=== PATIENT | male | born 1945 | race Caucasian/White ===

== ENCOUNTER 2017-01-04 21:05 | Emergency (ER) | payer MEDICARE ==
[~2017-01-04] VITALS: Ht 182.9 cm; Wt 86.2 kg
[2017-01-04 21:52] LABS: Basophils # (auto) 0 uL; Basophils % (auto) 0.3 % (0.0-2.0); CONDITION Y; Eosinophils # (auto) 0.1 uL; Eosinophils % (auto) 1.7 % (0.0-7.0); Hemoglobin 14.5 g/dL (13.5-17.5); Lymphocytes % (auto) 13.2 % (10.0-50.0); Mean Corpuscular Hemoglobin 31.3 pg (28.0-32.0); Mean Corpuscular Hgb Conc. 34.5 g/dL (32.0-36.0); Mean Corpuscular Volume 90.8 fL (80.0-100.0); Mean Platelet Volume 8.8 fL (6.9-10.8); Monocytes # (auto) 0.7 uL; Monocytes % (auto) 9.4 % (0.0-12.0); Neutrophils # (auto) 5.5 uL; Neutrophils % (auto) 75.4 % (37.0-80.0); Platelet Count (auto) 222 10^3/uL (140-450); White Blood Cell 7.3 10^3/uL (4.4-10.8)
[2017-01-04 22:14] LABS: Albumin 3.4 g/dL (3.4-5.0); Anion Gap 6 (5-15); Aspartate Aminotransferase 17 U/L (15-37); BUN/Creatinine Ratio 10.2; Blood Urea Nitrogen 11 mg/dL (7-18); Calcium 8.4 mg/dL (8.5-10.1); Carbon Dioxide 28 mmol/L (21-32); Chloride 110 mmol/L (98-107); GFR African American 87 mL/min; GFR Non-African American 72 mL/min; Glucose 85 mg/dL (74-106); Magnesium 2.1 mg/dL (1.6-2.6); Sodium 144 mmol/L (136-145)
[2017-01-04 22:19] LABS: Alkaline Phosphatase 116 U/L (45-117); Bilirubin, Total 0.6 mg/dL (0.2-1.0)
[2017-01-05 01:02] VITALS: BP 152/82
== END 2017-01-05 01:44 | disposition left against medical advice (07) ==
LOC: EDBD 21:05 → ER 21:11
DX: I10 Essential (primary) hypertension (principal); F41.9 Anxiety disorder, unspecified; Z88.6 Allergy status to analgesic agent; Z53.29 Procedure and treatment not carried out because of patient's decision for other reasons
CPT/HCPCS: 36415; 71010; 80053; 83735; 84484; 85025; 85379; 93005

== ENCOUNTER 2019-08-22 12:52 | Inpatient (IN) | payer MEDICARE, OTHER ==
[~2019-08-22] VITALS: Ht 185.4 cm; Wt 70.3 kg
[2019-08-22] MEDS ORDERED: ASPirin 81 mg TAB PO ONE (13:30)
[2019-08-22 13:44] LABS: Basophils # (auto) 0 10 ^3/uL (0-0.2); Basophils % (auto) 0.7 % (0.0-2.0); Eosinophils # (auto) 0.1 10 ^3/uL (0-0.8); Eosinophils % (auto) 1.7 % (0.0-7.0); Hematocrit 42.3 % (41.0-53.0); Hemoglobin 14.2 g/dL (13.5-17.5); Lymphocytes # (auto) 0.8 10 ^3/uL (0.4-5.4); Lymphocytes % (auto) 15.1 % (10.0-50.0); Mean Corpuscular Hgb Conc. 33.5 g/dL (32.0-36.0); Mean Corpuscular Volume 92.4 fL (80.0-100.0); Monocytes # (auto) 0.4 10 ^3/uL (0-1.3); Monocytes % (auto) 8.9 % (0.0-12.0); Neutrophils # (auto) 3.7 10 ^3/uL (1.6-8.6); Neutrophils % (auto) 73.6 % (37.0-80.0); Nucleated Red Blood Cells % 0.2 %; Platelet Count (auto) 173 10^3/uL (140-450); Red Blood Cells 4.58 10^6/uL (4.5-5.90); Red Cell Distribution Width 13.7 % (11.8-14.3)
[2019-08-22 14:00] LABS: Albumin 3.5 g/dL (3.4-5.0); Anion Gap 5 (5-15); Blood Urea Nitrogen 13 mg/dL (7-18); Calcium 8.8 mg/dL (8.5-10.1); Carbon Dioxide 27 mmol/L (21-32); Chloride 108 mmol/L (98-107); Glucose 82 mg/dL (74-106); Magnesium 2.2 mg/dL (1.6-2.6); Potassium 3.8 mmol/L (3.5-5.1); Sodium 140 mmol/L (136-145)
[2019-08-22] MEDS ORDERED: LORazepam 2MG/ML-1ML VIAL ONE (14:00)
[2019-08-22 14:01] LABS: INR 1.04 (0.9-1.15); Partial Thromboplastin Time 26.8 sec (23.64-32.05)
[2019-08-22 14:05] LABS: Alanine Aminotransferase 16 U/L (16-61); Alkaline Phosphatase 92 U/L (45-117); Aspartate Aminotransferase 17 U/L (15-37); BUN/Creatinine Ratio 13.1; Bilirubin, Total 0.9 mg/dL (0.2-1.0); GFR African American 95 mL/min; GFR Non-African American 79 mL/min; Total Protein 7.1 g/dL (6.4-8.2)
[2019-08-22] MEDS ORDERED: LORazepam 2MG/ML-1ML VIAL IV ONE ×3 (14:15→17:00)
[2019-08-22] MEDS ORDERED: diphenhdrAMINE HCL 50 MG/1 ML VL IV ONE (15:00)
[2019-08-22] MEDS ORDERED: ACETAMINOPHEN 500 MG TAB PO PRN (16:00)
[2019-08-22] MEDS ORDERED: traMADol HCL 50 MG TAB PO PRN (16:00)
[2019-08-22] MEDS ORDERED: NITROGLYCERIN 0.4 MG SL TAB SL PRN (16:00)
[2019-08-22] MEDS ORDERED: MORPHINE SULF INJ 2 MG/ML SYRINGE 1ML IV PRN (16:00)
[2019-08-22] MEDS ORDERED: LACTULOSE 20Gm/30ML SOLN PO PRN (16:00)
[2019-08-22] MEDS ORDERED: ONDANSETRON HCL 4 MG/2 ML VIAL IV PRN (16:00)
[2019-08-22] MEDS: ENOXAPARIN SOD 40 MG/0.4 ML SYRINGE SC SCH (16:02)
[2019-08-22] MEDS ORDERED: HALOPERIDOL LACTATE 5 MG/ML INJ VIAL IV ONE (16:15)
[2019-08-22] MEDS: SODIUM CHLORIDE 0.9% 1,000 ML IV SCH (16:26)
[2019-08-22] MEDS ORDERED: risperiDONE 1 MG TAB PO ONE (17:00)
[2019-08-22 17:30] VITALS: BP 189/90
[2019-08-22] MEDS ORDERED: LISI2.5T47 PO (19:43)
[2019-08-22] MEDS ORDERED: LOP2C PO (19:43)
[2019-08-22] MEDS ORDERED: DONE5TAB11 PO (19:43)
[2019-08-22] MEDS ORDERED: ASPI-404 PO (19:43)
[2019-08-22 20:00] VITALS: BP 152/98
[2019-08-22] MEDS ORDERED: hydrALAZINE HCL 20 MG/ML VL IV PRN (20:00)
[2019-08-22] MEDS: METOPROLOL TARTRATE 25 MG TAB PO SCH (22:47)
[2019-08-22] MEDS: ATORVASTATIN 20 MG TAB PO SCH (22:48)
[2019-08-22] MEDS: DONEPEZIL HYDROCHLORIDE 5 MG TAB PO SCH (22:48)
[2019-08-23] MEDS: SODIUM CHLORIDE 0.9% 1,000 ML IV SCH ×2 (05:57→15:59)
[2019-08-23] MEDS: LORazepam 2MG/ML-1ML VIAL IV PRN ×3 (08:40→22:28)
[2019-08-23 09:00] VITALS: BP 138/79
[2019-08-23] MEDS: ENOXAPARIN SOD 40 MG/0.4 ML SYRINGE SC SCH (11:55)
[2019-08-23] MEDS: NITROGLYCERIN 0.2MG/HR TOPICAL PATCH TD SCH (11:56)
[2019-08-23] MEDS: risperiDONE 1 MG TAB PO SCH (11:56)
[2019-08-23] MEDS: ASPirin 81 mg TAB PO SCH (11:56)
[2019-08-23] MEDS: METOPROLOL TARTRATE 25 MG TAB PO SCH ×2 (11:57→22:43)
[2019-08-23 13:00] VITALS: BP 118/66
[2019-08-23 17:00] VITALS: BP 135/70
[2019-08-23 22:00] VITALS: BP 143/76
[2019-08-23] MEDS: ATORVASTATIN 20 MG TAB PO SCH (22:42)
[2019-08-23] MEDS: DONEPEZIL HYDROCHLORIDE 5 MG TAB PO SCH (22:42)
[2019-08-24 05:00] VITALS: BP 150/77
[2019-08-24 08:30] VITALS: BP 128/74
[2019-08-24] MEDS: ENOXAPARIN SOD 40 MG/0.4 ML SYRINGE SC SCH (10:07)
[2019-08-24] MEDS: NITROGLYCERIN 0.2MG/HR TOPICAL PATCH TD SCH (10:09)
[2019-08-24] MEDS: ASPirin 81 mg TAB PO SCH (11:57)
[2019-08-24] MEDS: risperiDONE 1 MG TAB PO SCH (11:57)
[2019-08-24] MEDS: METOPROLOL TARTRATE 25 MG TAB PO SCH ×2 (11:57→21:53)
[2019-08-24 14:00] VITALS: BP 145/81
[2019-08-24] MEDS: LORazepam 2MG/ML-1ML VIAL IV PRN (15:33)
[2019-08-24 17:00] VITALS: BP 151/90
[2019-08-24 21:49] VITALS: BP 150/90
[2019-08-24] MEDS: ATORVASTATIN 20 MG TAB PO SCH (21:53)
[2019-08-24] MEDS: DONEPEZIL HYDROCHLORIDE 5 MG TAB PO SCH (21:53)
[2019-08-25] MEDS: LORazepam 2MG/ML-1ML VIAL IV PRN ×2 (02:51→09:46)
[2019-08-25 05:00] VITALS: BP 128/67
[2019-08-25] MEDS: risperiDONE 1 MG TAB PO SCH (09:44)
[2019-08-25] MEDS: ASPirin 81 mg TAB PO SCH (09:45)
[2019-08-25] MEDS: METOPROLOL TARTRATE 25 MG TAB PO SCH (09:45)
[2019-08-25] MEDS: ENOXAPARIN SOD 40 MG/0.4 ML SYRINGE SC SCH (09:45)
[2019-08-25] MEDS: NITROGLYCERIN 0.2MG/HR TOPICAL PATCH TD SCH (09:46)
[2019-08-25 13:00] VITALS: BP 132/74
[2019-08-28] MEDS ORDERED: LISI10TA6 PO (11:09)
== END 2019-08-25 17:30 | disposition home or self-care (01) | DRG 303 ==
LOC: ER 12:52 → EDBD 12:52 → TELE 12:53 → TELE-WESTW 17:30
PROVIDERS: ADMIT Internal Medicine; ATTEND Internal Medicine Nephrology
DX: I25.10 Atherosclerotic heart disease of native coronary artery without angina pectoris (principal); F02.81 Dementia in other diseases classified elsewhere, unspecified severity, with behavioral disturbance; K50.90 Crohn's disease, unspecified, without complications; G30.1 Alzheimer's disease with late onset; I10 Essential (primary) hypertension; Z82.49 Family history of ischemic heart disease and other diseases of the circulatory system; Z87.891 Personal history of nicotine dependence; Z79.899 Other long term (current) drug therapy
CPT/HCPCS: 36415; 71045; 80053; 82550; 83735; 83880; 84443; 84484; 85025; 85379; 85610; 85652; 85730; 87045; 87427; 87493; 93005; 93306; 96361; 96374; 96375; G0378

== ENCOUNTER 2019-08-25 21:59 | Inpatient (IN) | payer OTHER ==
[~2019-08-25] VITALS: Ht 182.9 cm; Wt 76.0 kg
[~2019-08-25 21:59] MED LIST: ASPI-543 PO; DONE5TAB11 PO; LISI2.5T47 PO; LOP2C PO
[2019-08-25 22:49] LABS: Basophils # (auto) 0 10 ^3/uL (0-0.2); Basophils % (auto) 0.3 % (0.0-2.0); Eosinophils # (auto) 0 10 ^3/uL (0-0.8); Eosinophils % (auto) 0.1 % (0.0-7.0); Hematocrit 45.1 % (41.0-53.0); Lymphocytes # (auto) 0.4 10 ^3/uL (0.4-5.4); Mean Corpuscular Hemoglobin 30.4 pg (28.0-32.0); Mean Corpuscular Hgb Conc. 33.3 g/dL (32.0-36.0); Mean Corpuscular Volume 91.4 fL (80.0-100.0); Monocytes % (auto) 10.4 % (0.0-12.0); Neutrophils % (auto) 85.2 % (37.0-80.0); Nucleated Red Blood Cells % 0.1 %; Platelet Count (auto) 168 10^3/uL (140-450); Red Blood Cells 4.94 10^6/uL (4.5-5.90); Red Cell Distribution Width 13.5 % (11.8-14.3); White Blood Cell 9.4 10^3/uL (4.4-10.8)
[2019-08-25 22:58] LABS: Albumin 3.5 g/dL (3.4-5.0); Anion Gap 7 (5-15); Blood Urea Nitrogen 14 mg/dL (7-18); Calcium 8.9 mg/dL (8.5-10.1); Carbon Dioxide 27 mmol/L (21-32); Chloride 106 mmol/L (98-107); Glucose 129 mg/dL (74-106); Potassium 3.5 mmol/L (3.5-5.1); Sodium 140 mmol/L (136-145)
[2019-08-25] MEDS ORDERED: SODIUM CHLORIDE 0.9% 1,000 ML IV ONE (23:00)
[2019-08-25 23:05] LABS: Alanine Aminotransferase 23 U/L (16-61); Alkaline Phosphatase 106 U/L (45-117); Aspartate Aminotransferase 33 U/L (15-37); BUN/Creatinine Ratio 12.3; Bilirubin, Total 1.9 mg/dL (0.2-1.0); GFR African American 81 mL/min; GFR Non-African American 67 mL/min; Total Protein 7.3 g/dL (6.4-8.2)
[2019-08-25] MEDS ORDERED: diphenhdrAMINE HCL 50 MG/1 ML VL IV ONE (23:15)
[2019-08-26 01:54] LABS: Urine Bacteria FEW /hpf (None Seen); Urine Blood 1+ /uL (Negative); Urine Hyaline Cast MANY /lpf (0 - 2); Urine Mucus FEW (None Seen); Urine Specific Gravity 1.023 (1.001-1.035); Urine WBC 6 /hpf (0 - 3)
[2019-08-26] MEDS ORDERED: cefTRIAXone 1GM/50ML D5W 50 ML IV ONE (03:15)
[2019-08-26] MEDS ORDERED: DOCUSATE SOD 100 MG CAP PO PRN (05:00)
[2019-08-26] MEDS ORDERED: ONDANSETRON HCL 4 MG/2 ML VIAL IV PRN (05:00)
[2019-08-26] MEDS ORDERED: ACETAMINOPHEN 325 MG TAB PO PRN (05:00)
[2019-08-26] MEDS: ASPirin 81 mg TAB PO SCH (10:06)
[2019-08-26] MEDS: FAMOTIDINE 20 MG TAB PO SCH ×2 (10:06→22:59)
[2019-08-26] MEDS: LISINOPRIL 5 MG TAB PO SCH (10:07)
[2019-08-26] MEDS ORDERED: DOXYCYCLINE 100MG/250ML 250 ML IV ONE (11:15)
[2019-08-26] MEDS: SODIUM CHLORIDE 0.9% 1,000 ML IV SCH (12:21)
--- NOTE | 2019-08-26 14:51 | NUR ---
MS admit from ER BOYDJONEL admitted to tele/MS after SBAR received. Patient oriented to PRASANNA MORALES, RN primary RN, unit, room 219B, bed, and unit policies regarding patient care and visiting hours. Patient weighed by bedscale and encouraged to call if they need something. All questions and concerns addressed, patient verbalized understanding. Bed in low and locked position, rails up x2, no-slip socks on, sitter at bedside.
[2019-08-26 15:00] VITALS: BP 140/70
--- NOTE | 2019-08-26 15:40 | NUR ---
SPOKE TO PATIENTS JANNETTE ON THE PHONE, VERIFIED RELATIONSHIP TO PATIENT, PASSWORD CREATED FOR CHART. UPDATED ON PLN OF CARE, DMISSION QUESTIONS ANSWERED.
[2019-08-26 17:00] VITALS: BP 129/70
[2019-08-26 17:03] VITALS: BP 140/70
--- NOTE | 2019-08-26 18:11 | NUR ---
MRSA SWAB COLLECTED
--- NOTE | 2019-08-26 19:05 | NUR ---
OPENING SHIFT NOTE: ASSUMED CARE OF PATIENT. PATIENT IS AWAKE AND ALERT TO SELF ONLY. NO S/S OF SOB OR DISTRESS NOTED. BED IS LOW, LOCKED, TWO SIDE RAILS RAISED, CALL DA SILVA WITHIN REACH, BED ALARM ON, AND SITTER AT THE BEDSIDE. ORELLANA HUNG BELOW THE BLADDER AND DRAINING TO GRAVITY. INSTRUCTED ON POC AND ENCOURAGED PT TO CALL FOR ASSISTANCE, PATIENT VERBALIZED UNDERSTANDING. WILL CONTINUE TO MONITOR Q1 HR AND PRN.
[2019-08-26 20:00] VITALS: BP 124/81
[2019-08-26 21:22] VITALS: BP 124/81
[2019-08-26] MEDS: DOXYCYCLINE 100MG/250ML 250 ML IV SCH (22:00)
[2019-08-26] MEDS: DONEPEZIL HYDROCHLORIDE 5 MG TAB PO SCH (22:58)
--- NOTE | 2019-08-26 23:30 | NUR ---
IV DISCONTINUED/INSERTED: RIGHT FOREARM 20 GAUGE PULLED OUT BY PATIENT, CATHETER TIP INTACT, PRESSURE DRESSING APPLIED. NEW 22 GAUGE IV INSERTED IN RIGHT FOREARM, PATIENT TOLERATED WELL. WILL CONTINUE TO MONITOR
[2019-08-27] MEDS: SODIUM CHLORIDE 0.9% 1,000 ML IV SCH ×2 (01:50→15:10)
[2019-08-27] MEDS: cefTRIAXone 1GM/50ML D5W 50 ML IV SCH (03:06)
[2019-08-27 05:17] VITALS: BP 119/72
[2019-08-27 06:54] LABS: Basophils # (auto) 0 10 ^3/uL (0-0.2); Basophils % (auto) 0.5 % (0.0-2.0); Eosinophils # (auto) 0.2 10 ^3/uL (0-0.8); Eosinophils % (auto) 2.1 % (0.0-7.0); Hematocrit 40.7 % (41.0-53.0); Hemoglobin 13.7 g/dL (13.5-17.5); Lymphocytes # (auto) 0.6 10 ^3/uL (0.4-5.4); Mean Corpuscular Hemoglobin 30.4 pg (28.0-32.0); Mean Corpuscular Hgb Conc. 33.5 g/dL (32.0-36.0); Mean Corpuscular Volume 90.7 fL (80.0-100.0); Monocytes # (auto) 1.1 10 ^3/uL (0-1.3); Monocytes % (auto) 14.1 % (0.0-12.0); Neutrophils # (auto) 5.8 10 ^3/uL (1.6-8.6); Neutrophils % (auto) 75.3 % (37.0-80.0); Nucleated Red Blood Cells % 0.2 %; Platelet Count (auto) 168 10^3/uL (140-450); Red Blood Cells 4.49 10^6/uL (4.5-5.90); Red Cell Distribution Width 13.5 % (11.8-14.3); White Blood Cell 7.7 10^3/uL (4.4-10.8)
[2019-08-27 07:10] LABS: BUN/Creatinine Ratio 17.1; Calcium 8.2 mg/dL (8.5-10.1)
--- NOTE | 2019-08-27 07:25 | NUR ---
OPENING SHIFT NOTE ASSUMED CARE OF PATIENT FROM LABEL MAKER RN SAIRA. PATIENT IS AWAKE, ALERT, AND ORIENTED X1 (PERSON). REORIENTED PATIENT TO TIME, PLACE, AND SITUATION. PATIENT HAS NO S/S OF DISTRESS/SOB OR PAIN. INSTRUCTED PATIENT ON POC, PATIENT VERBALIZED UNDERSTANDING. BED IS IN LOWEST POSITION WITH SIDE RAILS RAISED X2, BED WHEELS LOCKED, ORELLANA IS HANGING BELOW BLADDER AND IS DRAINING DARK MENG URINE, SITTER AT BEDSIDE, AND CALL LIGHT IS WITHIN REACH. WILL CONTINUE TO MONITOR.
[2019-08-27 07:37] LABS: Potassium 2.8 mmol/L (3.5-5.1)
--- NOTE | 2019-08-27 07:40 | NUR ---
SPOKE WITH HOSPITALIST INFORMED MD GODWIN AND INFORMED HIM OF POTASSIUM OF 2.8. MD ORDERED 40 MEQ POTASSIUM IV. WILL FOLLOW THROUGH WITH ORDERS.
[2019-08-27 07:59] VITALS: BP 155/97
[2019-08-27 09:00] VITALS: BP 155/97
[2019-08-27] MEDS: ASPirin 81 mg TAB PO SCH (09:07)
[2019-08-27] MEDS: POTASSIUM CHL 20MEQ/100ML 100 ML IV SCH ×2 (09:07→11:45)
[2019-08-27] MEDS: LISINOPRIL 5 MG TAB PO SCH (09:08)
[2019-08-27] MEDS: FAMOTIDINE 20 MG TAB PO SCH ×2 (09:20→21:41)
[2019-08-27] MEDS: DOXYCYCLINE 100MG/250ML 250 ML IV SCH ×2 (09:22→21:41)
[2019-08-27] MEDS ORDERED: POTASSIUM CHL 20 Meq TABLET PO ONE (10:15)
--- NOTE | 2019-08-27 11:08 | NUR ---
WOUND CARE NOTE: Wound care in to see patient per wound care request regarding low Meir score. Patient is 74 years old male with admitting diagnosis of Acute Encephalopathy. Patient with history of Alzheimer, dementia, Htn. Patient is resting in bed in Rm. 219B. Patient is awake and able to follow simple direction. He's able to turn and reposition self upon given direction. His Meir score is 15. Skin assessment done with the help of nurse tourist information assistant at bedside. No wound noted other than inner buttock scar, intact ecchymosis to bilateral dorsal hand and Rt forearm; area is clean and dry, left open to air. Patient is receiving BID/PRN cleaning and application of Barrier cream to sacral buttocks as preventative. Patient tolerated well and repositioned for comfort facing his Lt side. Nurse tourist information assistant t bedside. RECOMMENDATION: Nursing to continue with BID/PRN cleaning and application of Barrier cream to sacral, buttocks as preventative, remind for frequent turning and repositioning as condition permits, redistribute pressure points with pillows,continue monitoring by wound care while patient is hospitalized. Addendum: 08/27/19 at 1320 by Sarita Padilla RN Amended: Links added.
--- NOTE | 2019-08-27 12:06 | NUR ---
assessment re: ss consult need more help Patient is a 74 year old male who is confused. Per patients Antonr prior to admission patient lived home with her and functioned with her assistance. Per Renetta patient could bathe, dress, and feed himself. Patient ambulated on his own with no DME. Per Renetta she would be with him at all times to watch over him due to his dementia. Per Renetta patients PCP is Dr Black at [facility]. Renetta informed me patient has no needs at home. I informed Renetta about the ss consult for needing additional resources on discharge. Renetta informed me home health nurse to check patients vitals would be beneficial. I will notify MD. Jackson verbalized understanding and agreed to discharge plan home. Addendum: 08/27/19 at 1214 by Maddi SANCHEZ Amended: Links added.
[2019-08-27 13:00] VITALS: BP 157/89
[2019-08-27] MEDS ORDERED: POTASSIUM EFFERVESENT TAB 25 MEQ PO ONE (14:15)
--- NOTE | 2019-08-27 14:25 | NUR ---
Nutrition Consult/assessment Notes please see attached link for complete assessment. [employer] needs BW 74 [id number] kcals (25-30 kcal/kgBW), Est Protein needs: 74-88/day (1.0-1.2 gm/kg BW). Will continue to monitor and reassess prn. Addendum: 08/27/19 at [address] Amended: Links added.
[2019-08-27 17:00] VITALS: BP 133/72
[2019-08-27] MEDS ORDERED: ENOXAPARIN SOD 40 MG/0.4 ML SYRINGE SC ONE (17:45)
--- NOTE | 2019-08-27 19:20 | NUR ---
Received report from the Day Shift WOO Kelly. Pt. in bed resting.
--- NOTE | 2019-08-27 19:22 | NUR ---
CLOSING SHIFT NOTE ENDORSED CARE TO RN DIABETES WOO LINARES. PATIENT HAS NO S/S OF DISTRESS/SOB OR PAIN.
--- NOTE | 2019-08-27 20:00 | NUR ---
Assessment done and completed. Provided bedside nsg. care and assisted with ADL'S and needs @ the bedside. Trupti Leonard @ the bedside helped WOO Quiroz providing pt. care.
[2019-08-27] MEDS: DONEPEZIL HYDROCHLORIDE 5 MG TAB PO SCH (21:41)
--- NOTE | 2019-08-27 21:41 | NUR ---
Meds. as scheduled given/administered to the pt. Pt. is confused and unable to comprehend health teachings. Trupti @ the bedside.
[2019-08-27 22:00] VITALS: BP 148/80
--- NOTE | 2019-08-27 22:00 | NUR ---
Pt. is trying to get oob and able to sit @ the side of the bed. Pt. is trying to pull his F/C with his hands. Pt. provided health teaching about hurting himself if he attempts to pull-out the F/C. Pt. understands a little or partial understanding. Pt. assisted back to the bed with his hands away from the F/C. Keep pt.safe and financial service representative bed.
[2019-08-28] MEDS: TEMAZEPAM 15 MG CAP PO PRN ×2 (00:25→21:34)
--- NOTE | 2019-08-28 00:25 | NUR ---
Pt. given Restoril-Temazepam 15 mg. po @ this time to help pt. go to sleep and prevent from getting oob and to prevent from pullingout his F/C. Pt. scooted up and repositioned comfortably in bed. Siderails up x -3, bed locked in low position and with the sitter @ the bedside.
--- NOTE | 2019-08-28 02:00 | NUR ---
Pt. is sleeping and calm @ this time. Maintained a safe and a quiet environment. Sitter @ the bedside.
[2019-08-28] MEDS: cefTRIAXone 1GM/50ML D5W 50 ML IV SCH (03:36)
--- NOTE | 2019-08-28 03:36 | NUR ---
Rocephin-Ceftriaxone IV antibiotic given @ this time.
--- NOTE | 2019-08-28 04:00 | NUR ---
Pt. sleeping, calm and quiet.
[2019-08-28 05:00] VITALS: BP 141/81
[2019-08-28 06:57] LABS: Calcium 8.5 mg/dL (8.5-10.1)
[2019-08-28 07:00] LABS: BUN/Creatinine Ratio 17.3
--- NOTE | 2019-08-28 07:40 | NUR ---
Opening shift note Assumed care of patient from NOC WOO Quiroz. Patient is AOx2-3, laying supine in bed with bilateral mittens in place. Assessed hands and no signs of injury noted under mittens. No signs and symptoms of distress, sob or pain noted. Bed is in lowest locked position, side rails up x4, call light is within reach and safety attended Cydney is at bedside. Updated patient on plan of care, patient unable to state understanding, reinforcement is needed. I will continue to monitor Q1hr and PRN.
--- NOTE | 2019-08-28 07:40 | NUR ---
Critical Lab Received call for potassium of 2.7, I will notify training personnel supervisor physician.
[2019-08-28 07:45] LABS: Potassium 2.7 mmol/L (3.5-5.1)
--- NOTE | 2019-08-28 08:19 | NUR ---
Paged cassandra consultant awaiting call back
[2019-08-28] MEDS: LISINOPRIL 5 MG TAB PO SCH (10:00)
--- NOTE | 2019-08-28 10:11 | NUR ---
Called physician updated Dr. Dos Santos about critical lab result. New orders received. I will follow through with orders.
[2019-08-28] MEDS: POTASSIUM CHL 10 Meq TABLET PO ONE ×2 (10:15→12:26)
[2019-08-28] MEDS ORDERED: LISI-648 PO (11:09)
[2019-08-28] MEDS: ENOXAPARIN SOD 40 MG/0.4 ML SYRINGE SC SCH (12:24)
[2019-08-28] MEDS: FAMOTIDINE 20 MG TAB PO SCH ×2 (12:25→12:41)
[2019-08-28] MEDS: ASPirin 81 mg TAB PO SCH ×2 (12:25→12:41)
[2019-08-28] MEDS: DOXYCYCLINE 100MG/250ML 250 ML IV SCH ×2 (12:28→21:51)
--- NOTE | 2019-08-28 12:45 | NUR ---
Patient refusing medications Patient will not swallow pills when i provided him with the medications, patient saying he doesn't want to swallow them. Educated patient on risks of not taking the medication. Patient unable to verbalize understanding, patient is A0x2.
--- NOTE | 2019-08-28 13:20 | NUR ---
Physician rounding Dr. Dos Santos at bedside. Updated him on patient status. New orders received, I will follow through with MD orders.
[2019-08-28] MEDS ORDERED: cloNIDine HCL 0.1 MG TAB PO PRN (13:30)
[2019-08-28 14:21] LABS: BUN/Creatinine Ratio 10.2; Calcium 8.7 mg/dL (8.5-10.1); Potassium 3.3 mmol/L (3.5-5.1)
[2019-08-28] MEDS: POTASSIUM CHL 20MEQ/100ML 100 ML IV SCH ×2 (15:11→18:58)
[2019-08-28 17:00] VITALS: BP 149/68
--- NOTE | 2019-08-28 19:15 | NUR ---
End of shift note Care of patient endorsed to WOO Jurado. No s/s of distress noted at this time.
[2019-08-28 20:00] VITALS: BP 145/68
--- NOTE | 2019-08-28 20:10 | NUR ---
SITTER AT BEDSIDE;PT CONFUSED BUT NOT AGITATED;TURNS SELF WELL.WILL CONTINUE TO MONITOR.
[2019-08-28 21:00] VITALS: BP 146/82
[2019-08-28] MEDS: DONEPEZIL HYDROCHLORIDE 5 MG TAB PO SCH (21:51)
[2019-08-29] MEDS: cefTRIAXone 1GM/50ML D5W 50 ML IV SCH (03:37)
[2019-08-29 05:00] VITALS: BP 149/72
--- NOTE | 2019-08-29 07:45 | NUR ---
Opening shift note Assumed care of patient from NOC RN Rhiannon. Patient is AOx1-2, no s/s of distress noted at this time. Bed is in lowest locked position, side rails up x3, and safety tech Sofi is at bedside. Updated patient on plan of care and patient wasn't able to verbalize understanding. Reinforcement is needed, I will continue to monitor Q1hr and PRN.
--- NOTE | 2019-08-29 09:20 | NUR ---
Physician rounding Dr. Dos Santos at bedside. Updated him on patient status. No new orders received.
[2019-08-29] MEDS ORDERED: POTASSIUM CHL 20 Meq TABLET PO ONE (09:30)
[2019-08-29] MEDS: DOXYCYCLINE 100MG/250ML 250 ML IV SCH ×3 (10:00→22:00)
[2019-08-29] MEDS: FAMOTIDINE 20 MG TAB PO SCH ×2 (10:54→21:42)
[2019-08-29] MEDS: LISINOPRIL 5 MG TAB PO SCH (10:55)
[2019-08-29] MEDS: ASPirin 81 mg TAB PO SCH (10:55)
[2019-08-29] MEDS: ENOXAPARIN SOD 40 MG/0.4 ML SYRINGE SC SCH (10:56)
[2019-08-29 11:35] VITALS: BP 148/77
--- NOTE | 2019-08-29 12:07 | NUR ---
IV insertion IV access obtained, via clean sterile technique by inserting 20 gauge catheter at right forearm after 2 attempts. IV secured properly. No trauma to site. Patient tolerated well.
[2019-08-29 13:11] VITALS: BP 128/63
--- NOTE | 2019-08-29 14:00 | NUR ---
IV removal Patient removed IV, catheter fully intact. Pressure dressing applied to site. No signs of distress noted to site.
[2019-08-29 14:16] LABS: BUN/Creatinine Ratio 11.4; Calcium 8.4 mg/dL (8.5-10.1)
[2019-08-29 16:33] VITALS: BP 147/72
--- NOTE | 2019-08-29 17:00 | NUR ---
Attempted to start IV: Patient refused new IV placement. Educated patient on importance of IV.
--- NOTE | 2019-08-29 19:27 | NUR ---
End of shift note: Endorsed care to NOC WOO Holman. No signs and symptoms of distress noted at this time.
--- NOTE | 2019-08-29 19:35 | NUR ---
Opening shift note Report received from day shift RN. Assumed care of patient. Patient is A&O to self. Patient reorientated to current situation and patient unable to verbalize understanding at this time. Adan is patent and draining to gravity. No s/s of distress, SOB, or pain noted at this time. Bed is locked and in lowest position with the side rails up x3, call light is within reach. Sitter is at bedside for safety. Updated patient on plan of care, patient unable to state understanding, reinforcement is needed. Will continue to monitor Q1hr and PRN.
--- NOTE | 2019-08-29 20:00 | NUR ---
IV insertion IV access obtained, via clean sterile technique by inserting 22 gauge catheter at the RFA after 1 attempt(s). IV secured properly. No trauma to site. Patient tolerated well.
[2019-08-29] MEDS: DONEPEZIL HYDROCHLORIDE 5 MG TAB PO SCH (21:42)
[2019-08-29] MEDS: TEMAZEPAM 15 MG CAP PO PRN (21:43)
[2019-08-29 22:00] VITALS: BP 147/84
--- NOTE | 2019-08-29 22:00 | NUR ---
PT REFUSED 2200 TEMP X3 RN NOTIFIED
[2019-08-30] MEDS: cefTRIAXone 1GM/50ML D5W 50 ML IV SCH (03:00)
[2019-08-30 05:00] VITALS: BP 147/91
--- NOTE | 2019-08-30 07:15 | NUR ---
Opening shift note Assumed care of patient from NOC RN Manda. Patient is AOx1 no s/s of distress noted at this time. Bed is in lowest locked position, side rails up x3, and environmental health safety engineer Yanni is at bedside. Updated patient on plan of care and patient wasn't able to verbalize understanding. Reinforcement is needed, I will continue to monitor Q1hr and PRN.
[2019-08-30 09:00] VITALS: BP_SYST 137; BP_SYST 146; BP_DIAS 89; BP_DIAS 92
[2019-08-30] MEDS: FAMOTIDINE 20 MG TAB PO SCH ×2 (10:02→21:09)
[2019-08-30] MEDS: DOXYCYCLINE 100MG/250ML 250 ML IV SCH ×2 (10:02→21:09)
[2019-08-30] MEDS: LISINOPRIL 5 MG TAB PO SCH (10:04)
[2019-08-30] MEDS: ENOXAPARIN SOD 40 MG/0.4 ML SYRINGE SC SCH (10:12)
--- NOTE | 2019-08-30 12:30 | NUR ---
Turk catheter dc'd Order to discontinue turk catheter. Turk dc'd with clean technique following deflation of balloon. Patient tolerated well with no complaints of pain. Continue care.
[2019-08-30 13:00] VITALS: BP 154/99
[2019-08-30 17:00] VITALS: BP 131/91
--- NOTE | 2019-08-30 19:15 | NUR ---
End of shift note Endorsed care to NOC RN Sukh. No signs and symptoms of distress noted at this time.
--- NOTE | 2019-08-30 19:35 | NUR ---
Opening shift note Assumed care of patient. Patient is awake and oriented x 1, sitting on his bed. No signs/symptoms of respiratory distress/shortness of breath noted, SpO2 94% on RA. Patient reports no pain. Bed is in lowest position, brakes are locked, side rails up x3, bed alarm is on, and call light is within reach. Sitter at bedside for safety measures. R. peripheral IV site is asymptomatic and patent. Plan of care was verbalized to the patient. Patient was unable to fully understand. Reinforcement is needed. Will continue to monitor Q1hr and PRN.
[2019-08-30 20:00] VITALS: BP 144/77
[2019-08-30] MEDS: DONEPEZIL HYDROCHLORIDE 5 MG TAB PO SCH (21:08)
[2019-08-30 22:00] VITALS: BP 144/77
--- NOTE | 2019-08-31 00:03 | NUR ---
[facility] hospitalist patient's potassium is 3.0 on 08/29/19 at 13:40. patient was given Potassium ER PO on 08/28. Potassium had not been rechecked since then. patient is currently asymptomatic. VS is within normal limits.
--- NOTE | 2019-08-31 00:09 | NUR ---
Hospitalist Spoke to hospitalist Dr. Guerrero regarding patient's potassium level 3.0. Doctor is aware of trending low potassium level and last BMP test was done morning 08/28. Order for BMP test was obtained and placed per Dr. Guerrero.
[2019-08-31 01:14] LABS: BUN/Creatinine Ratio 23.1; Calcium 9.1 mg/dL (8.5-10.1); Potassium 3.1 mmol/L (3.5-5.1)
--- NOTE | 2019-08-31 01:55 | NUR ---
Paging hospitalist Paging hospitalist patient's labs come back with potassium level 3.1.
--- NOTE | 2019-08-31 02:01 | NUR ---
Spoke to MD Guerrero and notified him of potassium level of 3.1 mEq. Orders received: 1) Potassium 40 mEq IV once, 2) Potassium 40 mEq PO Once. Orders repeated, verified, and placed.
[2019-08-31] MEDS: cefTRIAXone 1GM/50ML D5W 50 ML IV SCH (02:07)
[2019-08-31] MEDS ORDERED: POTASSIUM CHL 20 Meq TABLET PO ONE (02:15)
--- NOTE | 2019-08-31 02:31 | NUR ---
IV DC and insertion IV assessment shown infiltration and IV catheter was removed with sterile technique. Catheter is fully intact. Pressure dressing applied to site and wrapped with Co-band. Patient tolerated procedure well. New IV access obtained on L. forearm via sterile technique by inserting 22 gauge catheter. IV secured properly. No trauma to site. Patient tolerated procedure well.
[2019-08-31] MEDS: POTASSIUM CHL 20MEQ/100ML 100 ML IV SCH ×2 (02:59→06:21)
--- NOTE | 2019-08-31 03:32 | NUR ---
Infusing Potassium Chloride at lowered rate for patient (5mEq/hr) because patient is sensitive to infusion. Site is CDI with no signs of inflammation, pitting, infiltration, or extravasation at site. NS infusing at 75 ml/hr. Patient does not report any discomfort at site anymore.
[2019-08-31 05:00] VITALS: BP 153/90
--- NOTE | 2019-08-31 06:22 | NUR ---
Patient reported pain at IV site. Some phlebitis and redness and site noted. IV catheter removed with catheter intact. Site covered by gauze and wrapped in Coban. New IV catheter to right wrist, 22 gauge, placed using clean technique. Site secured with Tegaderm. Second 20 mEq bag of potassium chloride started.
[2019-08-31 09:00] VITALS: BP 157/61
[2019-08-31] MEDS: DOXYCYCLINE 100MG/250ML 250 ML IV SCH (12:45)
[2019-08-31] MEDS: FAMOTIDINE 20 MG TAB PO SCH (12:48)
[2019-08-31] MEDS: LISINOPRIL 5 MG TAB PO SCH (12:48)
[2019-08-31] MEDS: ENOXAPARIN SOD 40 MG/0.4 ML SYRINGE SC SCH (12:48)
[2019-08-31] MEDS: ASPirin 81 mg TAB PO SCH (12:48)
[2019-08-31 13:00] VITALS: BP 154/83
[2019-08-31 16:18] VITALS: BP 157/61
[2019-08-31 17:00] VITALS: BP 140/79
--- NOTE | 2019-08-31 17:50 | NUR ---
IV DISCONTINUED WITH CATHETER INTACT
--- NOTE | 2019-08-31 18:00 | NUR ---
DISCHARGE INSTRUCTIONS SPOKE TO PTS AND GAVE DISCHARGE INSTRUCTIONS WELL INSTRUCTIONS TO FOLLOW UP WITH PRIMARY MD (WHO IS OUT OF THE AREA). ANSWERED QUESTIONS IN REGARD TO GENERIC SCRIPT THAT WAS LEFT BY HOSPITALIST. NO FURTHER QUESTIONS. WILL CALL WHEN SHE ARRIVES FOR IT SALES REPRESENTATIVE.
--- NOTE | 2019-08-31 19:08 | NUR ---
Discharge instructions given as ordered. Encourage to follow up with PMD as instructed. All questions and concerns addressed. Patient verbalized understanding. IV removed prior with catheter intact, pressure dressing applied.Patient taken to vehicle via wheelchair with all personal belongings, accompanied by staff and . No distress noted at time of departure.
== END 2019-08-31 19:08 | disposition home or self-care (01) | DRG 70 ==
LOC: EDBD 21:59 → ER 22:02 → OVERFLOW 22:03 → CENTRAL 08-26 14:52
PROVIDERS: ADMIT Nurse Practitioner; ATTEND Internal Medicine Nephrology
DX: G93.41 Metabolic encephalopathy (principal); N17.0 Acute kidney failure with tubular necrosis; N39.0 Urinary tract infection, site not specified; R65.10 Systemic inflammatory response syndrome (SIRS) of non-infectious origin without acute organ dysfunction; K50.90 Crohn's disease, unspecified, without complications; R62.7 Adult failure to thrive; F02.80 Dementia in other diseases classified elsewhere, unspecified severity, without behavioral disturbance, psychotic disturbance, mood disturbance, and anxiety; E87.6 Hypokalemia; I25.10 Atherosclerotic heart disease of native coronary artery without angina pectoris; I10 Essential (primary) hypertension; G30.9 Alzheimer's disease, unspecified; Z79.899 Other long term (current) drug therapy; Z82.49 Family history of ischemic heart disease and other diseases of the circulatory system; Z88.5 Allergy status to narcotic agent
CPT/HCPCS: 36415; 51702; 70450; 71045; 80048; 80053; 81001; 83605; 84484; 85025; 87040; 87081; 87086; 96361; 96365; 96375; G0378; J0696; J3480; J3490

== ENCOUNTER 2020-11-13 15:44 | Inpatient (IN) | payer OTHER ==
[~2020-11-13] VITALS: Ht 182.9 cm; Wt 68.8 kg
[~2020-11-13 15:44] MED LIST changes: +LISI-716 PO; -LISI2.5T47 PO
[2020-11-14] VITALS (13 sets, daily range): BP systolic 81–119; BP diastolic 50–72
[2020-11-14] MEDS ORDERED: MIDAZOLAM DRIP 50 mg/50mL 50 ML IV ONE (00:26)
[2020-11-14] MEDS ORDERED: MIDAZOLAM HCL 5 MG/ML-1ML VIAL ONE (00:27)
[2020-11-14] MEDS ORDERED: ETOMIDATE (2MG/ML) 20ML VIAL IV ONE ×2 (00:28→00:30)
[2020-11-14] MEDS ORDERED: IPRATROPIUM BROM 0.5 MG/2.5ML INH SOL HHN ONE (00:30)
[2020-11-14] MEDS ORDERED: MIDAZOLAM HCL 5 MG/ML-1ML VIAL IV ONE (00:30)
[2020-11-14] MEDS ORDERED: SODIUM CHLORIDE 0.9% 1,000 ML IV ONE ×2 (00:30→01:30)
[2020-11-14] MEDS ORDERED: ALBUTEROL SULF 2.5 MG/0.5ML(0.5%) NEB SOLN HHN ONE (00:30)
[2020-11-14] MEDS: MIDAZOLAM DRIP 50 mg/50mL 50 ML IV SCH (00:35)
[2020-11-14 01:28] LABS: Alanine Aminotransferase 35 U/L (16-61); Anion Gap 4 (5-15); Aspartate Aminotransferase 89 U/L (15-37); BUN/Creatinine Ratio 20.4; Blood Urea Nitrogen 22 mg/dL (7-18); Calcium 8.6 mg/dL (8.5-10.1); Carbon Dioxide 24 mmol/L (21-32); Chloride 112 mmol/L (98-107); GFR African American 86 mL/min; GFR Non-African American 71 mL/min; Glucose 99 mg/dL (74-106); Magnesium 1.9 mg/dL (1.6-2.6); Potassium 3.5 mmol/L (3.5-5.1); Sodium 140 mmol/L (136-145)
[2020-11-14] MEDS ORDERED: PIPERACILLIN-TAZOB 3.375GM 100 ML IV ONE (01:30)
[2020-11-14 01:31] LABS: Urine Bacteria NONE SEEN /hpf (None Seen); Urine Blood TRACE /uL (Negative); Urine Hyaline Cast FEW /lpf (0 - 2); Urine Mucus FEW (None Seen); Urine Specific Gravity 1.023 (1.001-1.035); Urine WBC 7 /hpf (0 - 3)
[2020-11-14 01:33] LABS: Alkaline Phosphatase 152 U/L (45-117); Total Protein 6.7 g/dL (6.4-8.2)
[2020-11-14 01:35] LABS: White Blood Cell 8.9 10^3/uL (4.4-10.8)
[2020-11-14 01:51] LABS: Basophils # (auto) 0 10 ^3/uL (0-0.2); Basophils % (auto) 0.3 % (0.0-2.0); Eosinophils # (auto) 0 10 ^3/uL (0-0.8); Hematocrit 38.4 % (41.0-53.0); Lymphocytes # (auto) 0.8 10 ^3/uL (0.4-5.4); Lymphocytes % (auto) 8.8 % (10.0-50.0); Mean Corpuscular Hemoglobin 31.4 pg (28.0-32.0); Mean Corpuscular Hgb Conc. 33.8 g/dL (32.0-36.0); Monocytes # (auto) 1.2 10 ^3/uL (0-1.3); Monocytes % (auto) 13.1 % (0.0-12.0); Neutrophils # (auto) 6.9 10 ^3/uL (1.6-8.6); Neutrophils % (auto) 77.8 % (37.0-80.0); Red Blood Cells 4.13 10^6/uL (4.5-5.90); Red Cell Distribution Width 13.5 % (11.8-14.3)
[2020-11-14] MEDS ORDERED: DexAMETHasone INJECTION 10 MG in D5W 5% 50 ML IV SCH (02:00)
[2020-11-14] MEDS ORDERED: DexAMETHasone SOD PHOS 4 MG/1ML SDV INJ ONE (02:13)
[2020-11-14] MEDS ORDERED: IOHEXOL 350 MG/ML 100ML IJ ONE (05:29)
[2020-11-14] MEDS ORDERED: ONDANSETRON HCL 4 MG/2 ML VIAL IV PRN (05:30)
[2020-11-14] MEDS ORDERED: ACETAMINOPHEN 325 MG TAB PO PRN (05:30)
[2020-11-14] MEDS ORDERED: NITROGLYCERIN 0.4 MG SL TAB SL PRN (05:30)
[2020-11-14] MEDS: SODIUM CHLORIDE 0.9% 1,000 ML IV SCH ×2 (07:10→20:00)
[2020-11-14] MEDS ORDERED: ALBUTEROL SULF 2.5 MG/0.5ML(0.5%) NEB SOLN NEB PRN (07:15)
[2020-11-14] MEDS ORDERED: IPRATROPIUM BROM 0.5 MG/2.5ML INH SOL NEB PRN (07:15)
[2020-11-14 08:53] LABS: INR 1.08 (0.9-1.15); Partial Thromboplastin Time 25.6 sec (23.0-31.2)
[2020-11-14] MEDS ORDERED: ENOXAPARIN SOD 40 MG/0.4 ML SYRINGE SC SCH (10:00)
[2020-11-14] MEDS: PANTOPRAZOLE 40 MG/10 ML VIAL INJ IV SCH (10:09)
[2020-11-14] MEDS ORDERED: AZITHROMYCIN 500MG/ 250ML 250 ML IV ONE (13:15)
[2020-11-14 13:58] LABS: Free T4 (Free Thyroxine) 0.95 ng/dL (0.89-1.76)
[2020-11-14 13:59] LABS: Folate (Folic Acid) 14.38 ng/mL (5.38-24)
[2020-11-14] MEDS: ALBUTEROL SULF 2.5 MG/0.5ML(0.5%) NEB SOLN NEB SCH ×3 (14:40→22:16)
[2020-11-14] MEDS: IPRATROPIUM BROM 0.5 MG/2.5ML INH SOL NEB SCH ×3 (14:40→22:16)
[2020-11-14] MEDS ORDERED: LACT10SO3 PO (16:31)
[2020-11-14] MEDS ORDERED: BENA10TA47 PO (16:31)
[2020-11-14] MEDS ORDERED: ATOR40TA52 PO (16:31)
[2020-11-14] MEDS ORDERED: LIDOCAINE 1% (LOCAL ANESTH.) PF 5ml SDV ID ONE (19:00)
[2020-11-14] MEDS: SODIUM CHLOR 0.9% PF (SALINE LOCK) 10ML VIAL/SYR IV SCH (22:58)
[2020-11-15] VITALS (38 sets, daily range): BP systolic 98–198; BP diastolic 50–86
[2020-11-15] MEDS: ENOXAPARIN SOD 60 MG/0.6 ML SYRINGE SC SCH ×3 (00:09→20:47)
[2020-11-15] MEDS: ALBUTEROL SULF 2.5 MG/0.5ML(0.5%) NEB SOLN NEB SCH ×6 (02:14→22:28)
[2020-11-15] MEDS: IPRATROPIUM BROM 0.5 MG/2.5ML INH SOL NEB SCH ×6 (02:14→22:28)
[2020-11-15] MEDS: MIDAZOLAM DRIP 50 mg/50mL 50 ML IV SCH ×2 (04:00→19:54)
[2020-11-15 06:29] LABS: Basophils # (auto) 0 10 ^3/uL (0-0.2); Basophils % (auto) 0.2 % (0.0-2.0); Eosinophils # (auto) 0 10 ^3/uL (0-0.8); Hematocrit 30.9 % (41.0-53.0); Hemoglobin 10.9 g/dL (13.5-17.5); Lymphocytes # (auto) 0.4 10 ^3/uL (0.4-5.4); Lymphocytes % (auto) 3.9 % (10.0-50.0); Mean Corpuscular Hemoglobin 32.6 pg (28.0-32.0); Mean Corpuscular Hgb Conc. 35.2 g/dL (32.0-36.0); Mean Corpuscular Volume 92.6 fL (80.0-100.0); Monocytes # (auto) 0.8 10 ^3/uL (0-1.3); Monocytes % (auto) 7.4 % (0.0-12.0); Neutrophils # (auto) 9.2 10 ^3/uL (1.6-8.6); Neutrophils % (auto) 88.5 % (37.0-80.0); Red Blood Cells 3.33 10^6/uL (4.5-5.90); Red Cell Distribution Width 13.8 % (11.8-14.3); White Blood Cell 10.4 10^3/uL (4.4-10.8)
[2020-11-15 06:41] LABS: Albumin 2.3 g/dL (3.4-5.0); Potassium 3.3 mmol/L (3.5-5.1)
[2020-11-15 06:46] LABS: BUN/Creatinine Ratio 23.8; Bilirubin, Total 1.1 mg/dL (0.2-1.0); Total Protein 5.6 g/dL (6.4-8.2)
[2020-11-15] MEDS: SODIUM CHLORIDE 0.9% 1,000 ML IV SCH (08:17)
[2020-11-15] MEDS: cefTRIAXone 1GM/50ML D5W 50 ML IV SCH (09:21)
[2020-11-15] MEDS: AZITHROMYCIN 500MG/ 250ML 250 ML IV SCH (10:02)
[2020-11-15] MEDS: SODIUM CHLOR 0.9% PF (SALINE LOCK) 10ML VIAL/SYR IV SCH ×2 (10:03→23:45)
[2020-11-15] MEDS: PANTOPRAZOLE 40 MG/10 ML VIAL INJ IV SCH (10:03)
[2020-11-15] MEDS ORDERED: POTASSIUM EFFERVESENT TAB 25 MEQ GT ONE ×2 (19:45→22:00)
[2020-11-15] MEDS: PROPOFOL 100 ML IV SCH (20:46)
[2020-11-15] MEDS: fentaNYL Drip 2500mCg/250mlNS 250 ML IV SCH (20:50)
[2020-11-15] MEDS ORDERED: BENAZEPRIL HCL 10 MG TAB GT ONE (22:00)
[2020-11-15] MEDS ORDERED: FUROSEMIDE 40 MG/4 ML VIAL IV ONE (22:00)
[2020-11-16] VITALS (91 sets, daily range): BP systolic 122–171; BP diastolic 44–82
[2020-11-16] MEDS: ALBUTEROL SULF 2.5 MG/0.5ML(0.5%) NEB SOLN NEB SCH ×6 (02:00→22:29)
[2020-11-16] MEDS: IPRATROPIUM BROM 0.5 MG/2.5ML INH SOL NEB SCH ×6 (02:00→22:29)
[2020-11-16 05:05] LABS: Basophils # (auto) 0 10 ^3/uL (0-0.2); Basophils % (auto) 0.2 % (0.0-2.0); Eosinophils # (auto) 0 10 ^3/uL (0-0.8); Hematocrit 32.7 % (41.0-53.0); Hemoglobin 11.5 g/dL (13.5-17.5); Lymphocytes # (auto) 0.4 10 ^3/uL (0.4-5.4); Lymphocytes % (auto) 3.8 % (10.0-50.0); Mean Corpuscular Hemoglobin 32.6 pg (28.0-32.0); Mean Corpuscular Hgb Conc. 35.1 g/dL (32.0-36.0); Monocytes # (auto) 0.7 10 ^3/uL (0-1.3); Monocytes % (auto) 6.7 % (0.0-12.0); Neutrophils % (auto) 89.3 % (37.0-80.0); Red Blood Cells 3.51 10^6/uL (4.5-5.90); Red Cell Distribution Width 13.8 % (11.8-14.3); White Blood Cell 10.1 10^3/uL (4.4-10.8)
[2020-11-16] MEDS: LABETALOL HCL 5 MG/ML 4ML SYRINGE IV PRN (05:17)
[2020-11-16 05:25] LABS: BUN/Creatinine Ratio 25.9; Calcium 8.1 mg/dL (8.5-10.1); Potassium 3.1 mmol/L (3.5-5.1)
[2020-11-16] MEDS ORDERED: POTASSIUM CHL 20MEQ/100ML 100 ML IV ONE (06:30)
[2020-11-16] MEDS: cefTRIAXone 1GM/50ML D5W 50 ML IV SCH (08:53)
[2020-11-16] MEDS ORDERED: POTASSIUM EFFERVESENT TAB 25 MEQ GT ONE (10:15)
[2020-11-16] MEDS: AZITHROMYCIN 500MG/ 250ML 250 ML IV SCH (10:21)
[2020-11-16] MEDS: SODIUM CHLOR 0.9% PF (SALINE LOCK) 10ML VIAL/SYR IV SCH ×2 (10:22→22:00)
[2020-11-16] MEDS: PANTOPRAZOLE 40 MG/10 ML VIAL INJ IV SCH (10:22)
[2020-11-16] MEDS: ENOXAPARIN SOD 60 MG/0.6 ML SYRINGE SC SCH ×2 (10:22→22:00)
[2020-11-16] MEDS: BENAZEPRIL HCL 10 MG TAB GT SCH (10:23)
[2020-11-16] MEDS: fentaNYL Drip 2500mCg/250mlNS 250 ML IV SCH (19:45)
[2020-11-16] MEDS: PROPOFOL 100 ML IV SCH (20:00)
[2020-11-17] VITALS (96 sets, daily range): BP systolic 126–194; BP diastolic 46–84
[2020-11-17] MEDS: IPRATROPIUM BROM 0.5 MG/2.5ML INH SOL NEB SCH ×5 (02:15→22:41)
[2020-11-17] MEDS: ALBUTEROL SULF 2.5 MG/0.5ML(0.5%) NEB SOLN NEB SCH ×5 (02:15→22:41)
[2020-11-17] MEDS: MIDAZOLAM DRIP 50 mg/50mL 50 ML IV SCH (03:00)
[2020-11-17] MEDS: MORPHINE SULFATE 4 MG/ML SYR/VIAL IV PRN (08:29)
[2020-11-17] MEDS ORDERED: SODIUM CHLORIDE 0.9% 500 ML IV ONE (08:30)
[2020-11-17] MEDS ORDERED: SODIUM CHLORIDE 0.9% 1,000 ML IV ONE (08:45)
[2020-11-17] MEDS: cefTRIAXone 1GM/50ML D5W 50 ML IV SCH (09:02)
[2020-11-17] MEDS: PANTOPRAZOLE 40 MG/10 ML VIAL INJ IV SCH (10:01)
[2020-11-17] MEDS: SODIUM CHLOR 0.9% PF (SALINE LOCK) 10ML VIAL/SYR IV SCH ×2 (10:01→23:01)
[2020-11-17] MEDS: AZITHROMYCIN 500MG/ 250ML 250 ML IV SCH (10:02)
[2020-11-17] MEDS: BENAZEPRIL HCL 10 MG TAB GT SCH (10:02)
[2020-11-17] MEDS: ENOXAPARIN SOD 60 MG/0.6 ML SYRINGE SC SCH ×2 (10:02→23:01)
[2020-11-17] MEDS: LABETALOL HCL 5 MG/ML 4ML SYRINGE IV PRN (10:03)
[2020-11-17] MEDS ORDERED: FUROSEMIDE 20 MG/2 ML VIAL IV ONE (12:30)
[2020-11-17] MEDS: D5W 5% 1,000 ML IV SCH (13:52)
[2020-11-17] MEDS: fentaNYL Drip 2500mCg/250mlNS 250 ML IV SCH (19:45)
[2020-11-17] MEDS: PROPOFOL 100 ML IV SCH (20:00)
[2020-11-17] MEDS ORDERED: amLODIPine BESYLATE 5 MG TAB GT ONE (21:45)
[2020-11-18] VITALS (105 sets, daily range): BP systolic 119–189; BP diastolic 48–80
[2020-11-18] MEDS: IPRATROPIUM BROM 0.5 MG/2.5ML INH SOL NEB SCH ×6 (02:45→22:19)
[2020-11-18] MEDS: ALBUTEROL SULF 2.5 MG/0.5ML(0.5%) NEB SOLN NEB SCH ×6 (02:45→22:19)
[2020-11-18] MEDS: MIDAZOLAM DRIP 50 mg/50mL 50 ML IV SCH ×2 (03:00→19:41)
[2020-11-18] MEDS: LABETALOL HCL 5 MG/ML 4ML SYRINGE IV PRN (05:53)
[2020-11-18] MEDS: MORPHINE SULFATE 4 MG/ML SYR/VIAL IV PRN (05:55)
[2020-11-18 06:16] LABS: Basophils # (auto) 0 10 ^3/uL (0-0.2); Basophils % (auto) 0.2 % (0.0-2.0); Eosinophils # (auto) 0 10 ^3/uL (0-0.8); Eosinophils % (auto) 0.1 % (0.0-7.0); Hematocrit 29.6 % (41.0-53.0); Hemoglobin 10.1 g/dL (13.5-17.5); Lymphocytes # (auto) 0.2 10 ^3/uL (0.4-5.4); Lymphocytes % (auto) 2.6 % (10.0-50.0); Mean Corpuscular Hemoglobin 32.1 pg (28.0-32.0); Mean Corpuscular Volume 94.4 fL (80.0-100.0); Monocytes # (auto) 0.6 10 ^3/uL (0-1.3); Monocytes % (auto) 8.1 % (0.0-12.0); Neutrophils # (auto) 6.9 10 ^3/uL (1.6-8.6); Red Blood Cells 3.14 10^6/uL (4.5-5.90); Red Cell Distribution Width 13.9 % (11.8-14.3); White Blood Cell 7.7 10^3/uL (4.4-10.8)
[2020-11-18 06:39] LABS: Potassium 3.5 mmol/L (3.5-5.1)
[2020-11-18] MEDS: D5W 5% 1,000 ML IV SCH (06:49)
[2020-11-18 06:53] LABS: Albumin 1.8 g/dL (3.4-5.0); BUN/Creatinine Ratio 28.9; Bilirubin, Total 1.1 mg/dL (0.2-1.0); Calcium 7.9 mg/dL (8.5-10.1); Total Protein 5.6 g/dL (6.4-8.2)
[2020-11-18] MEDS: BENAZEPRIL HCL 10 MG TAB GT SCH (08:31)
[2020-11-18] MEDS: cefTRIAXone 1GM/50ML D5W 50 ML IV SCH (08:48)
[2020-11-18] MEDS: PANTOPRAZOLE 40 MG/10 ML VIAL INJ IV SCH (10:00)
[2020-11-18] MEDS: SODIUM CHLOR 0.9% PF (SALINE LOCK) 10ML VIAL/SYR IV SCH ×2 (10:00→23:51)
[2020-11-18] MEDS ORDERED: amLODIPine BESYLATE 5 MG TAB GT SCH (10:00)
[2020-11-18] MEDS ORDERED: amLODIPine BESYLATE 5 MG TAB GT ONE (10:00)
[2020-11-18] MEDS: ENOXAPARIN SOD 60 MG/0.6 ML SYRINGE SC SCH ×2 (10:00→23:51)
[2020-11-18] MEDS: AZITHROMYCIN 500MG/ 250ML 250 ML IV SCH (10:00)
[2020-11-18] MEDS: hydrALAZINE HCL 20 MG/ML VL IV PRN (10:46)
[2020-11-18] MEDS: fentaNYL Drip 2500mCg/250mlNS 250 ML IV SCH (19:45)
[2020-11-18] MEDS: PROPOFOL 100 ML IV SCH (20:00)
[2020-11-19] VITALS (90 sets, daily range): BP systolic 115–146; BP diastolic 47–67
[2020-11-19] MEDS: IPRATROPIUM BROM 0.5 MG/2.5ML INH SOL NEB SCH ×6 (02:11→21:55)
[2020-11-19] MEDS: ALBUTEROL SULF 2.5 MG/0.5ML(0.5%) NEB SOLN NEB SCH ×6 (02:12→21:55)
[2020-11-19] MEDS: D5W 5% 1,000 ML IV SCH (04:30)
[2020-11-19 05:26] LABS: Basophils # (auto) 0 10 ^3/uL (0-0.2); Basophils % (auto) 0.1 % (0.0-2.0); Eosinophils # (auto) 0 10 ^3/uL (0-0.8); Eosinophils % (auto) 0.5 % (0.0-7.0); Hematocrit 28.7 % (41.0-53.0); Hemoglobin 9.8 g/dL (13.5-17.5); Lymphocytes # (auto) 0.3 10 ^3/uL (0.4-5.4); Lymphocytes % (auto) 4.5 % (10.0-50.0); Mean Corpuscular Hemoglobin 32.6 pg (28.0-32.0); Mean Corpuscular Hgb Conc. 34.3 g/dL (32.0-36.0); Monocytes # (auto) 0.7 10 ^3/uL (0-1.3); Monocytes % (auto) 11.6 % (0.0-12.0); Neutrophils # (auto) 4.7 10 ^3/uL (1.6-8.6); Neutrophils % (auto) 83.3 % (37.0-80.0); Red Blood Cells 3.02 10^6/uL (4.5-5.90); Red Cell Distribution Width 13.6 % (11.8-14.3); White Blood Cell 5.6 10^3/uL (4.4-10.8)
[2020-11-19 05:47] LABS: Potassium 3.5 mmol/L (3.5-5.1)
[2020-11-19] MEDS: MIDAZOLAM DRIP 50 mg/50mL 50 ML IV SCH ×2 (08:24→22:45)
[2020-11-19] MEDS: cefTRIAXone 1GM/50ML D5W 50 ML IV SCH (09:52)
[2020-11-19] MEDS: AZITHROMYCIN 500MG/ 250ML 250 ML IV SCH (09:53)
[2020-11-19] MEDS: PANTOPRAZOLE 40 MG/10 ML VIAL INJ IV SCH (09:54)
[2020-11-19] MEDS: SODIUM CHLOR 0.9% PF (SALINE LOCK) 10ML VIAL/SYR IV SCH ×2 (09:54→22:44)
[2020-11-19] MEDS: ENOXAPARIN SOD 60 MG/0.6 ML SYRINGE SC SCH ×2 (09:54→22:44)
[2020-11-19] MEDS: amLODIPine BESYLATE 5 MG TAB GT SCH (09:55)
[2020-11-19] MEDS: BENAZEPRIL HCL 10 MG TAB GT SCH (09:56)
[2020-11-19] MEDS: PROPOFOL 100 ML IV SCH (20:00)
[2020-11-20] VITALS (98 sets, daily range): BP systolic 117–180; BP diastolic 56–76
[2020-11-20] MEDS: D5W 5% 1,000 ML IV SCH (00:30)
[2020-11-20] MEDS: MIDAZOLAM DRIP 50 mg/50mL 50 ML IV SCH (04:34)
[2020-11-20 04:44] LABS: Basophils # (auto) 0 10 ^3/uL (0-0.2); Basophils % (auto) 0.2 % (0.0-2.0); Eosinophils # (auto) 0 10 ^3/uL (0-0.8); Eosinophils % (auto) 0.2 % (0.0-7.0); Hematocrit 29.8 % (41.0-53.0); Hemoglobin 10.3 g/dL (13.5-17.5); Lymphocytes # (auto) 0.2 10 ^3/uL (0.4-5.4); Lymphocytes % (auto) 2.8 % (10.0-50.0); Mean Corpuscular Hemoglobin 32.1 pg (28.0-32.0); Mean Corpuscular Hgb Conc. 34.7 g/dL (32.0-36.0); Mean Corpuscular Volume 92.6 fL (80.0-100.0); Monocytes % (auto) 11.8 % (0.0-12.0); Neutrophils # (auto) 6.9 10 ^3/uL (1.6-8.6); Red Blood Cells 3.22 10^6/uL (4.5-5.90); Red Cell Distribution Width 13.8 % (11.8-14.3); White Blood Cell 8.1 10^3/uL (4.4-10.8)
[2020-11-20 05:01] LABS: BUN/Creatinine Ratio 30.3; Calcium 8.2 mg/dL (8.5-10.1); Potassium 3.8 mmol/L (3.5-5.1)
[2020-11-20] MEDS: IPRATROPIUM BROM 0.5 MG/2.5ML INH SOL NEB SCH ×3 (06:10→18:36)
[2020-11-20] MEDS: ALBUTEROL SULF 2.5 MG/0.5ML(0.5%) NEB SOLN NEB SCH ×3 (06:10→18:35)
[2020-11-20] MEDS: fentaNYL Drip 2500mCg/250mlNS 250 ML IV SCH ×2 (08:22→18:59)
[2020-11-20] MEDS: cefTRIAXone 1GM/50ML D5W 50 ML IV SCH (08:46)
[2020-11-20] MEDS: BENAZEPRIL HCL 10 MG TAB GT SCH (11:04)
[2020-11-20] MEDS: SODIUM CHLOR 0.9% PF (SALINE LOCK) 10ML VIAL/SYR IV SCH ×2 (11:05→19:36)
[2020-11-20] MEDS: PANTOPRAZOLE 40 MG/10 ML VIAL INJ IV SCH (11:05)
[2020-11-20] MEDS: amLODIPine BESYLATE 5 MG TAB GT SCH (11:05)
[2020-11-20] MEDS: AZITHROMYCIN 500MG/ 250ML 250 ML IV SCH (11:06)
[2020-11-20] MEDS: ENOXAPARIN SOD 60 MG/0.6 ML SYRINGE SC SCH ×2 (11:06→19:36)
[2020-11-20] MEDS: D5W/SOD CHL 0.45%/KCL 20MEQ 1,000 ML IV SCH ×2 (11:15→23:35)
[2020-11-20] MEDS: ACETYLCYSTEINE 10 %(100MG/ML) SOL 4ML NEB SCH (18:36)
[2020-11-20] MEDS: hydrALAZINE HCL 20 MG/ML VL IV PRN (19:36)
[2020-11-20] MEDS: PROPOFOL 100 ML IV SCH (20:00)
[2020-11-21] VITALS (95 sets, daily range): BP systolic 114–185; BP diastolic 44–77
[2020-11-21] MEDS: IPRATROPIUM BROM 0.5 MG/2.5ML INH SOL NEB SCH ×4 (00:15→18:44)
[2020-11-21] MEDS: ALBUTEROL SULF 2.5 MG/0.5ML(0.5%) NEB SOLN NEB SCH ×4 (00:15→18:44)
[2020-11-21] MEDS: ACETYLCYSTEINE 10 %(100MG/ML) SOL 4ML NEB SCH ×4 (00:16→18:44)
[2020-11-21] MEDS: cefTRIAXone 1GM/50ML D5W 50 ML IV SCH (09:00)
[2020-11-21] MEDS: PANTOPRAZOLE 40 MG/10 ML VIAL INJ IV SCH (10:00)
[2020-11-21] MEDS: AZITHROMYCIN 500MG/ 250ML 250 ML IV SCH (10:00)
[2020-11-21] MEDS: SODIUM CHLOR 0.9% PF (SALINE LOCK) 10ML VIAL/SYR IV SCH ×2 (10:00→21:27)
[2020-11-21] MEDS: amLODIPine BESYLATE 5 MG TAB GT SCH (10:00)
[2020-11-21] MEDS: ENOXAPARIN SOD 60 MG/0.6 ML SYRINGE SC SCH ×2 (10:00→21:27)
[2020-11-21] MEDS: BENAZEPRIL HCL 10 MG TAB GT SCH (10:00)
[2020-11-21] MEDS: hydrALAZINE HCL 20 MG/ML VL IV PRN (13:26)
[2020-11-21] MEDS ORDERED: FUROSEMIDE 40 MG/4 ML VIAL IV ONE (15:00)
[2020-11-21] MEDS: D5W/SOD CHL 0.45%/KCL 20MEQ 1,000 ML IV SCH (15:15)
[2020-11-21] MEDS ORDERED: MORPHINE SULFATE INJECTION 2 MG/2 ML SYRG IV ONE (16:15)
[2020-11-21] MEDS ORDERED: LORazepam 2MG/ML-1ML VIAL IM ONE (16:15)
[2020-11-21] MEDS ORDERED: LORazepam 2MG/ML-1ML VIAL IV ONE (17:00)
[2020-11-21] MEDS ORDERED: fentaNYL CITRATE 100 MCG/2 ML VL IM ONE (17:00)
[2020-11-21] MEDS ORDERED: fentaNYL CITRATE 100 MCG/2 ML VL IV ONE (17:00)
[2020-11-21] MEDS ORDERED: LORazepam 2MG/ML-1ML VIAL IV PRN (17:45)
[2020-11-21] MEDS: KETOROLAC TROMETH 30 MG/ML 1ML VIAL IV PRN (19:33)
[2020-11-21] MEDS: LABETALOL HCL 5 MG/ML 4ML SYRINGE IV PRN (19:33)
[2020-11-21] MEDS: MORPHINE SULFATE INJECTION 2 MG/2 ML SYRG IV PRN (21:27)
[2020-11-22] VITALS (72 sets, daily range): BP systolic 100–187; BP diastolic 44–82
[2020-11-22] MEDS: ACETYLCYSTEINE 10 %(100MG/ML) SOL 4ML NEB SCH ×4 (00:43→20:10)
[2020-11-22] MEDS: ALBUTEROL SULF 2.5 MG/0.5ML(0.5%) NEB SOLN NEB SCH ×4 (00:43→20:10)
[2020-11-22] MEDS: IPRATROPIUM BROM 0.5 MG/2.5ML INH SOL NEB SCH ×4 (00:43→20:10)
[2020-11-22] MEDS: KETOROLAC TROMETH 30 MG/ML 1ML VIAL IV PRN (01:36)
[2020-11-22] MEDS: LABETALOL HCL 5 MG/ML 4ML SYRINGE IV PRN (01:36)
[2020-11-22] MEDS: cefTRIAXone 1GM/50ML D5W 50 ML IV SCH (09:17)
[2020-11-22] MEDS ORDERED: TPN PER PHARMACY 0 ML IV SCH (09:30)
[2020-11-22] MEDS: BENAZEPRIL HCL 10 MG TAB GT SCH (10:00)
[2020-11-22] MEDS: amLODIPine BESYLATE 5 MG TAB GT SCH (10:00)
[2020-11-22] MEDS: PANTOPRAZOLE 40 MG/10 ML VIAL INJ IV SCH (10:21)
[2020-11-22] MEDS: ENOXAPARIN SOD 60 MG/0.6 ML SYRINGE SC SCH ×2 (10:21→22:00)
[2020-11-22] MEDS: SODIUM CHLOR 0.9% PF (SALINE LOCK) 10ML VIAL/SYR IV SCH ×2 (10:23→21:49)
[2020-11-22 10:49] LABS: Basophils # (auto) 0 10 ^3/uL (0-0.2); Basophils % (auto) 0.1 % (0.0-2.0); Eosinophils # (auto) 0 10 ^3/uL (0-0.8); Eosinophils % (auto) 0.1 % (0.0-7.0); Hematocrit 28.2 % (41.0-53.0); Hemoglobin 9.8 g/dL (13.5-17.5); Lymphocytes # (auto) 0.2 10 ^3/uL (0.4-5.4); Lymphocytes % (auto) 2.1 % (10.0-50.0); Mean Corpuscular Hgb Conc. 34.9 g/dL (32.0-36.0); Mean Corpuscular Volume 91.7 fL (80.0-100.0); Monocytes # (auto) 0.5 10 ^3/uL (0-1.3); Monocytes % (auto) 4.6 % (0.0-12.0); Neutrophils # (auto) 9.7 10 ^3/uL (1.6-8.6); Neutrophils % (auto) 93.1 % (37.0-80.0); Red Blood Cells 3.07 10^6/uL (4.5-5.90); Red Cell Distribution Width 13.4 % (11.8-14.3); White Blood Cell 10.4 10^3/uL (4.4-10.8)
[2020-11-22 11:07] LABS: Calcium 8.2 mg/dL (8.5-10.1); Potassium 4.2 mmol/L (3.5-5.1)
[2020-11-22 11:13] LABS: Albumin 1.5 g/dL (3.4-5.0); BUN/Creatinine Ratio 28.9; Bilirubin, Total 0.8 mg/dL (0.2-1.0); Magnesium 1.9 mg/dL (1.6-2.6); Phosphorus 2.4 mg/dL (2.5-4.90); Pre Albumin 3.6 mg/dL (20.0-40.0); Total Protein 5.4 g/dL (6.4-8.2)
[2020-11-22] MEDS ORDERED: DEXTROSE (50%) 50ML SYRG IV SCH (13:30)
[2020-11-22] MEDS: D5W/SOD CHL 0.45%/KCL 20MEQ 1,000 ML IV SCH (15:15)
[2020-11-22] MEDS: MORPHINE SULFATE 4 MG/ML SYR/VIAL IV PRN (15:44)
[2020-11-22] MEDS ORDERED: Jevity 1.2 Cal/Fiber 1 Liter GT SCH (17:00)
[2020-11-22] MEDS ORDERED: ACCU-CHEK COMFORT CURVE STRIP VI SCH (18:00)
[2020-11-22] MEDS ORDERED: InsuLIN REG 1unit/0.01ml Soln (100units/ml) SC SCH (18:00)
[2020-11-22] MEDS ORDERED: SUCCINYLCHOLINE CHLORIDE 20 MG/ML 10ML VIAL IV ONE (19:16)
[2020-11-22] MEDS ORDERED: ETOMIDATE (2MG/ML) 20ML VIAL IV ONE (19:16)
[2020-11-22] MEDS: PROPOFOL 100 ML IV SCH (19:45)
[2020-11-22] MEDS: fentaNYL Drip 2500mCg/250mlNS 250 ML IV SCH (19:59)
[2020-11-22] MEDS ORDERED: SODIUM PHOSPHATES IV NR ×10 (20:00)
[2020-11-22] MEDS ORDERED: SODIUM CHLORIDE IV NR ×10 (20:00)
[2020-11-22] MEDS ORDERED: [UNRECOGNIZED DRUG - OTHER] IV NR ×10 (20:00)
[2020-11-22] MEDS ORDERED: SODIUM ACETATE IV NR ×10 (20:00)
[2020-11-22] MEDS: CLINDAMYCIN 300MG IV 50 ML IV SCH (22:30)
[2020-11-23] VITALS (91 sets, daily range): BP systolic 72–141; BP diastolic 27–86
[2020-11-23] MEDS: ALBUTEROL SULF 2.5 MG/0.5ML(0.5%) NEB SOLN NEB SCH ×4 (00:44→22:04)
[2020-11-23] MEDS: IPRATROPIUM BROM 0.5 MG/2.5ML INH SOL NEB SCH ×4 (00:44→22:04)
[2020-11-23] MEDS: ACETYLCYSTEINE 10 %(100MG/ML) SOL 4ML NEB SCH ×5 (00:45→22:04)
[2020-11-23] MEDS: CLINDAMYCIN 300MG IV 50 ML IV SCH ×3 (06:00→22:00)
[2020-11-23] MEDS: NOREPINEPHRINE 8 MG/250ML KIT 250 ML IV SCH (06:39)
[2020-11-23 09:58] LABS: Basophils # (auto) 0 10 ^3/uL (0-0.2); Basophils % (auto) 0.1 % (0.0-2.0); Eosinophils # (auto) 0 10 ^3/uL (0-0.8); Hematocrit 31.3 % (41.0-53.0); Hemoglobin 10.5 g/dL (13.5-17.5); Lymphocytes # (auto) 0.4 10 ^3/uL (0.4-5.4); Lymphocytes % (auto) 2.6 % (10.0-50.0); Mean Corpuscular Hemoglobin 31.1 pg (28.0-32.0); Mean Corpuscular Hgb Conc. 33.7 g/dL (32.0-36.0); Mean Corpuscular Volume 92.5 fL (80.0-100.0); Monocytes # (auto) 0.9 10 ^3/uL (0-1.3); Monocytes % (auto) 6.5 % (0.0-12.0); Neutrophils # (auto) 12.5 10 ^3/uL (1.6-8.6); Neutrophils % (auto) 90.8 % (37.0-80.0); Red Blood Cells 3.38 10^6/uL (4.5-5.90); Red Cell Distribution Width 13.9 % (11.8-14.3); White Blood Cell 13.7 10^3/uL (4.4-10.8)
[2020-11-23] MEDS: BENAZEPRIL HCL 10 MG TAB GT SCH (10:00)
[2020-11-23] MEDS: amLODIPine BESYLATE 5 MG TAB GT SCH (10:00)
[2020-11-23] MEDS: ENOXAPARIN SOD 60 MG/0.6 ML SYRINGE SC SCH ×2 (10:06→14:37)
[2020-11-23] MEDS: SODIUM CHLOR 0.9% PF (SALINE LOCK) 10ML VIAL/SYR IV SCH ×2 (10:06→22:00)
[2020-11-23] MEDS: PANTOPRAZOLE 40 MG/10 ML VIAL INJ IV SCH (10:06)
[2020-11-23 10:07] LABS: Calcium 8.3 mg/dL (8.5-10.1); Potassium 4.3 mmol/L (3.5-5.1)
[2020-11-23] MEDS: fentaNYL Drip 2500mCg/250mlNS 250 ML IV SCH (10:09)
[2020-11-23] MEDS: SODIUM CHLORIDE 0.9% 1,000 ML IV SCH ×2 (10:59→11:59)
[2020-11-23] MEDS: ALBUMIN 25% 100 ML IV SCH (18:16)
[2020-11-23] MEDS: PROPOFOL 100 ML IV SCH (23:00)
[2020-11-24] VITALS (100 sets, daily range): BP systolic 75–154; BP diastolic 36–70
[2020-11-24] MEDS: SODIUM CHLORIDE 0.9% 1,000 ML IV SCH ×2 (00:05→15:30)
[2020-11-24] MEDS: ALBUMIN 25% 100 ML IV SCH ×2 (02:00→09:23)
[2020-11-24] MEDS: IPRATROPIUM BROM 0.5 MG/2.5ML INH SOL NEB SCH ×5 (02:10→22:16)
[2020-11-24] MEDS: ACETYLCYSTEINE 10 %(100MG/ML) SOL 4ML NEB SCH ×5 (02:10→22:16)
[2020-11-24] MEDS: ALBUTEROL SULF 2.5 MG/0.5ML(0.5%) NEB SOLN NEB SCH ×5 (02:10→22:16)
[2020-11-24 05:25] LABS: Basophils # (auto) 0 10 ^3/uL (0-0.2); Basophils % (auto) 0.1 % (0.0-2.0); Eosinophils # (auto) 0 10 ^3/uL (0-0.8); Eosinophils % (auto) 0.5 % (0.0-7.0); Hematocrit 24.6 % (41.0-53.0); Hemoglobin 8.7 g/dL (13.5-17.5); Lymphocytes # (auto) 0.5 10 ^3/uL (0.4-5.4); Lymphocytes % (auto) 6.2 % (10.0-50.0); Mean Corpuscular Hemoglobin 32.1 pg (28.0-32.0); Mean Corpuscular Hgb Conc. 35.4 g/dL (32.0-36.0); Mean Corpuscular Volume 90.7 fL (80.0-100.0); Monocytes # (auto) 0.5 10 ^3/uL (0-1.3); Neutrophils # (auto) 6.7 10 ^3/uL (1.6-8.6); Neutrophils % (auto) 86.2 % (37.0-80.0); Red Blood Cells 2.71 10^6/uL (4.5-5.90); Red Cell Distribution Width 13.6 % (11.8-14.3); White Blood Cell 7.8 10^3/uL (4.4-10.8)
[2020-11-24 05:59] LABS: Albumin 1.8 g/dL (3.4-5.0); Calcium 8.2 mg/dL (8.5-10.1); Potassium 3.5 mmol/L (3.5-5.1)
[2020-11-24] MEDS: CLINDAMYCIN 300MG IV 50 ML IV SCH ×3 (06:00→23:14)
[2020-11-24 06:03] LABS: BUN/Creatinine Ratio 30.4; Bilirubin, Total 0.9 mg/dL (0.2-1.0); Total Protein 5.3 g/dL (6.4-8.2)
[2020-11-24] MEDS: PANTOPRAZOLE 40 MG/10 ML VIAL INJ IV SCH (09:22)
[2020-11-24] MEDS: NOREPINEPHRINE 8 MG/250ML KIT 250 ML IV SCH (09:24)
[2020-11-24] MEDS: fentaNYL Drip 2500mCg/250mlNS 250 ML IV SCH ×2 (09:26→23:16)
[2020-11-24] MEDS: ENOXAPARIN SOD 60 MG/0.6 ML SYRINGE SC SCH (09:48)
[2020-11-24] MEDS: SODIUM CHLOR 0.9% PF (SALINE LOCK) 10ML VIAL/SYR IV SCH ×2 (10:00→23:15)
[2020-11-24] MEDS ORDERED: ALBUMIN 5% 250 ML IV ONE (10:15)
[2020-11-24] MEDS ORDERED: LIDOCAINE HCL 2% TOP JELLY 5ML TOP ONE (11:50)
[2020-11-24] MEDS ORDERED: LIDOCAINE 2%HCL (LOCAL ANESTH.) INJ 20ML MDV ONE (11:50)
[2020-11-25] VITALS (78 sets, daily range): BP systolic 89–139; BP diastolic 45–65
[2020-11-25] MEDS: PROPOFOL 100 ML IV SCH ×3 (01:00→21:49)
[2020-11-25] MEDS: ACETYLCYSTEINE 10 %(100MG/ML) SOL 4ML NEB SCH ×6 (02:21→22:52)
[2020-11-25] MEDS: IPRATROPIUM BROM 0.5 MG/2.5ML INH SOL NEB SCH ×6 (02:21→22:52)
[2020-11-25] MEDS: ALBUTEROL SULF 2.5 MG/0.5ML(0.5%) NEB SOLN NEB SCH ×6 (02:21→22:52)
[2020-11-25] MEDS: NOREPINEPHRINE 8 MG/250ML KIT 250 ML IV SCH (06:15)
[2020-11-25] MEDS: CLINDAMYCIN 300MG IV 50 ML IV SCH ×3 (07:44→21:47)
[2020-11-25] MEDS: SODIUM CHLORIDE 0.9% 1,000 ML IV SCH ×2 (07:44→18:24)
[2020-11-25 09:40] LABS: Basophils # (auto) 0 10 ^3/uL (0-0.2); Basophils % (auto) 0.3 % (0.0-2.0); Eosinophils # (auto) 0 10 ^3/uL (0-0.8); Hemoglobin 8.1 g/dL (13.5-17.5); Lymphocytes # (auto) 0.2 10 ^3/uL (0.4-5.4); Monocytes # (auto) 0.4 10 ^3/uL (0-1.3); Neutrophils # (auto) 3.3 10 ^3/uL (1.6-8.6); Neutrophils % (auto) 83.7 % (37.0-80.0); Red Cell Distribution Width 13.5 % (11.8-14.3)
[2020-11-25 09:42] LABS: Eosinophils % (auto) 1.1 % (0.0-7.0); Hematocrit 23.4 % (41.0-53.0); Lymphocytes % (auto) 5.4 % (10.0-50.0); Mean Corpuscular Hemoglobin 31.7 pg (28.0-32.0); Mean Corpuscular Hgb Conc. 34.5 g/dL (32.0-36.0); Monocytes % (auto) 9.5 % (0.0-12.0); Nucleated Red Blood Cells % 0.1 %; Red Blood Cells 2.54 10^6/uL (4.5-5.90)
[2020-11-25] MEDS: SODIUM CHLOR 0.9% PF (SALINE LOCK) 10ML VIAL/SYR IV SCH ×2 (11:01→21:48)
[2020-11-25] MEDS: PANTOPRAZOLE 40 MG/10 ML VIAL INJ IV SCH (11:01)
[2020-11-25] MEDS: fentaNYL Drip 2500mCg/250mlNS 250 ML IV SCH (11:03)
[2020-11-25 15:48] LABS: % Iron Saturation 15.2 % (20-55)
[2020-11-25] MEDS ORDERED: SODIUM FERR GLUC 62.5MG/5ML 125 MG in SODIUM CHL 0.9% 100 ML IV ONE (19:30)
[2020-11-26] VITALS (68 sets, daily range): BP systolic 106–151; BP diastolic 53–72
[2020-11-26] MEDS: fentaNYL Drip 2500mCg/250mlNS 250 ML IV SCH ×2 (01:48→14:33)
[2020-11-26] MEDS: ACETYLCYSTEINE 10 %(100MG/ML) SOL 4ML NEB SCH ×6 (02:46→22:19)
[2020-11-26] MEDS: ALBUTEROL SULF 2.5 MG/0.5ML(0.5%) NEB SOLN NEB SCH ×6 (02:46→22:18)
[2020-11-26] MEDS: IPRATROPIUM BROM 0.5 MG/2.5ML INH SOL NEB SCH ×6 (02:46→22:18)
[2020-11-26 06:02] LABS: Basophils # (auto) 0 10 ^3/uL (0-0.2); Basophils % (auto) 0.3 % (0.0-2.0); Eosinophils # (auto) 0 10 ^3/uL (0-0.8); Eosinophils % (auto) 0.9 % (0.0-7.0); Hematocrit 21.1 % (41.0-53.0); Hemoglobin 7.4 g/dL (13.5-17.5); Lymphocytes # (auto) 0.2 10 ^3/uL (0.4-5.4); Lymphocytes % (auto) 6.6 % (10.0-50.0); Mean Corpuscular Hemoglobin 32.5 pg (28.0-32.0); Mean Corpuscular Hgb Conc. 35.1 g/dL (32.0-36.0); Mean Corpuscular Volume 92.7 fL (80.0-100.0); Monocytes # (auto) 0.4 10 ^3/uL (0-1.3); Monocytes % (auto) 11.3 % (0.0-12.0); Neutrophils % (auto) 80.9 % (37.0-80.0); Nucleated Red Blood Cells % 0.1 %; Red Blood Cells 2.28 10^6/uL (4.5-5.90); Red Cell Distribution Width 13.6 % (11.8-14.3); White Blood Cell 3.7 10^3/uL (4.4-10.8)
[2020-11-26] MEDS: NOREPINEPHRINE 8 MG/250ML KIT 250 ML IV SCH (06:15)
[2020-11-26] MEDS: CLINDAMYCIN 300MG IV 50 ML IV SCH ×3 (06:52→22:30)
[2020-11-26] MEDS: PANTOPRAZOLE 40 MG/10 ML VIAL INJ IV SCH (10:09)
[2020-11-26] MEDS: SODIUM CHLOR 0.9% PF (SALINE LOCK) 10ML VIAL/SYR IV SCH ×2 (10:10→22:31)
[2020-11-26] MEDS: SOD CHL 0.9%/ KCL 20MEQ 1,000 ML IV SCH (11:45)
[2020-11-26] MEDS: ALBUMIN 25% 100 ML IV SCH ×2 (11:48→18:30)
[2020-11-26 11:49] LABS: INR 1.12 (0.9-1.15); Partial Thromboplastin Time 29.7 sec (23.6-33.0)
[2020-11-26] MEDS: SODIUM FERR GLUC 62.5MG/5ML 125 MG in SODIUM CHL 0.9% 100 ML IV SCH (13:07)
[2020-11-26] MEDS: MORPHINE SULFATE 4 MG/ML SYR/VIAL IV PRN (18:28)
[2020-11-26] MEDS: PROPOFOL 100 ML IV SCH (21:00)
[2020-11-27] VITALS (100 sets, daily range): BP systolic 129–186; BP diastolic 56–86
[2020-11-27] MEDS: ALBUTEROL SULF 2.5 MG/0.5ML(0.5%) NEB SOLN NEB SCH ×6 (02:29→22:17)
[2020-11-27] MEDS: ACETYLCYSTEINE 10 %(100MG/ML) SOL 4ML NEB SCH ×6 (02:29→22:17)
[2020-11-27] MEDS: IPRATROPIUM BROM 0.5 MG/2.5ML INH SOL NEB SCH ×6 (02:29→22:17)
[2020-11-27] MEDS: fentaNYL Drip 2500mCg/250mlNS 250 ML IV SCH (03:37)
[2020-11-27] MEDS: ALBUMIN 25% 100 ML IV SCH (03:39)
[2020-11-27] MEDS: CLINDAMYCIN 300MG IV 50 ML IV SCH ×3 (06:00→22:00)
[2020-11-27 06:07] LABS: Basophils # (auto) 0 10 ^3/uL (0-0.2); Basophils % (auto) 0.4 % (0.0-2.0); Eosinophils # (auto) 0.1 10 ^3/uL (0-0.8); Eosinophils % (auto) 1.4 % (0.0-7.0); Hematocrit 24.8 % (41.0-53.0); Hemoglobin 8.7 g/dL (13.5-17.5); Lymphocytes # (auto) 0.3 10 ^3/uL (0.4-5.4); Lymphocytes % (auto) 5.3 % (10.0-50.0); Mean Corpuscular Hemoglobin 32.1 pg (28.0-32.0); Mean Corpuscular Volume 91.7 fL (80.0-100.0); Monocytes # (auto) 0.5 10 ^3/uL (0-1.3); Monocytes % (auto) 10.6 % (0.0-12.0); Neutrophils # (auto) 4.3 10 ^3/uL (1.6-8.6); Neutrophils % (auto) 82.3 % (37.0-80.0); Red Blood Cells 2.71 10^6/uL (4.5-5.90); Red Cell Distribution Width 13.7 % (11.8-14.3); White Blood Cell 5.2 10^3/uL (4.4-10.8)
[2020-11-27] MEDS: NOREPINEPHRINE 8 MG/250ML KIT 250 ML IV SCH (06:15)
[2020-11-27 06:39] LABS: BUN/Creatinine Ratio 30.8
[2020-11-27] MEDS ORDERED: LIDOCAINE W/ EPINEPHRINE 1% 20ML VIAL ONE (07:01)
[2020-11-27] MEDS ORDERED: fentaNYL CITRATE 100 MCG/2 ML VL ONE (08:21)
[2020-11-27] MEDS ORDERED: HYDROmorphone HCL 2 MG/ML VL ONE (08:21)
[2020-11-27] MEDS ORDERED: MIDAZOLAM HCL 2MG/2ML 2ml VIAL (1mg/ml) ONE (08:22)
[2020-11-27] MEDS ORDERED: HYDROmorphone HCL 2 MG/ML VL IV PRN (08:30)
[2020-11-27] MEDS ORDERED: MORPHINE SULFATE 4 MG/ML SYR/VIAL IV PRN (08:30)
[2020-11-27] MEDS ORDERED: MIDAZOLAM HCL 2MG/2ML 2ml VIAL (1mg/ml) IV PRN (08:30)
[2020-11-27] MEDS ORDERED: LABETALOL HCL 5 MG/ML 4ML SYRINGE IV PRN (08:30)
[2020-11-27] MEDS ORDERED: ePHEDrine SULFATE 50 MG/ML AMP IV PRN (08:30)
[2020-11-27] MEDS: SODIUM CHLOR 0.9% PF (SALINE LOCK) 10ML VIAL/SYR IV SCH ×2 (09:49→19:40)
[2020-11-27] MEDS: SOD CHL 0.9%/ KCL 20MEQ 1,000 ML IV SCH (09:49)
[2020-11-27] MEDS: PANTOPRAZOLE 40 MG/10 ML VIAL INJ IV SCH (09:49)
[2020-11-27] MEDS: SODIUM FERR GLUC 62.5MG/5ML 125 MG in SODIUM CHL 0.9% 100 ML IV SCH (12:14)
[2020-11-27] MEDS: hydrALAZINE HCL 20 MG/ML VL IV PRN (14:19)
[2020-11-27] MEDS: MORPHINE SULFATE INJECTION 2 MG/2 ML SYRG IV PRN (19:41)
[2020-11-27] MEDS: LORazepam 2MG/ML-1ML VIAL IV PRN (22:42)
[2020-11-28] VITALS (69 sets, daily range): BP systolic 100–167; BP diastolic 52–83
[2020-11-28] MEDS: MORPHINE SULFATE 4 MG/ML SYR/VIAL IV PRN ×7 (00:29→21:28)
[2020-11-28] MEDS: ACETYLCYSTEINE 10 %(100MG/ML) SOL 4ML NEB SCH ×6 (02:10→22:23)
[2020-11-28] MEDS: ALBUTEROL SULF 2.5 MG/0.5ML(0.5%) NEB SOLN NEB SCH ×6 (02:10→22:23)
[2020-11-28] MEDS: IPRATROPIUM BROM 0.5 MG/2.5ML INH SOL NEB SCH ×6 (02:10→22:23)
[2020-11-28] MEDS: SOD CHL 0.9%/ KCL 20MEQ 1,000 ML IV SCH ×2 (02:15→22:15)
[2020-11-28] MEDS: LORazepam 2MG/ML-1ML VIAL IV PRN ×2 (04:38→21:46)
[2020-11-28] MEDS: CLINDAMYCIN 300MG IV 50 ML IV SCH ×3 (04:49→21:46)
[2020-11-28 05:26] LABS: Basophils # (auto) 0 10 ^3/uL (0-0.2); Basophils % (auto) 0.4 % (0.0-2.0); Eosinophils # (auto) 0 10 ^3/uL (0-0.8); Hematocrit 32.9 % (41.0-53.0); Hemoglobin 11.3 g/dL (13.5-17.5); Lymphocytes # (auto) 0.3 10 ^3/uL (0.4-5.4); Mean Corpuscular Hemoglobin 31.6 pg (28.0-32.0); Mean Corpuscular Hgb Conc. 34.2 g/dL (32.0-36.0); Mean Corpuscular Volume 92.5 fL (80.0-100.0); Monocytes # (auto) 0.6 10 ^3/uL (0-1.3); Monocytes % (auto) 6.9 % (0.0-12.0); Neutrophils # (auto) 7.9 10 ^3/uL (1.6-8.6); Neutrophils % (auto) 89.7 % (37.0-80.0); Nucleated Red Blood Cells % 0.1 %; Red Blood Cells 3.56 10^6/uL (4.5-5.90); Red Cell Distribution Width 13.8 % (11.8-14.3); White Blood Cell 8.8 10^3/uL (4.4-10.8)
[2020-11-28] MEDS: NOREPINEPHRINE 8 MG/250ML KIT 250 ML IV SCH (06:15)
[2020-11-28] MEDS: SODIUM CHLOR 0.9% PF (SALINE LOCK) 10ML VIAL/SYR IV SCH ×2 (09:41→21:46)
[2020-11-28] MEDS: PANTOPRAZOLE 40 MG/10 ML VIAL INJ IV SCH (09:41)
[2020-11-28] MEDS: SODIUM FERR GLUC 62.5MG/5ML 125 MG in SODIUM CHL 0.9% 100 ML IV SCH (12:07)
[2020-11-28] MEDS: fentaNYL Drip 2500mCg/250mlNS 250 ML IV SCH (17:50)
[2020-11-28] MEDS: PROPOFOL 100 ML IV SCH (19:45)
[2020-11-29] VITALS (97 sets, daily range): BP systolic 97–154; BP diastolic 51–79
[2020-11-29] MEDS: ACETYLCYSTEINE 10 %(100MG/ML) SOL 4ML NEB SCH ×6 (02:14→22:03)
[2020-11-29] MEDS: IPRATROPIUM BROM 0.5 MG/2.5ML INH SOL NEB SCH ×6 (02:14→22:02)
[2020-11-29] MEDS: ALBUTEROL SULF 2.5 MG/0.5ML(0.5%) NEB SOLN NEB SCH ×6 (02:14→22:02)
[2020-11-29] MEDS: CLINDAMYCIN 300MG IV 50 ML IV SCH ×3 (06:07→21:25)
[2020-11-29] MEDS: MORPHINE SULFATE 4 MG/ML SYR/VIAL IV PRN ×3 (06:13→21:26)
[2020-11-29] MEDS: NOREPINEPHRINE 8 MG/250ML KIT 250 ML IV SCH (06:15)
[2020-11-29] MEDS: LORazepam 2MG/ML-1ML VIAL IV PRN (06:20)
[2020-11-29 08:03] LABS: Basophils # (auto) 0.1 10 ^3/uL (0-0.2); Basophils % (auto) 0.7 % (0.0-2.0); Eosinophils # (auto) 0 10 ^3/uL (0-0.8); Eosinophils % (auto) 0.3 % (0.0-7.0); Hematocrit 30.1 % (41.0-53.0); Hemoglobin 10.4 g/dL (13.5-17.5); Lymphocytes # (auto) 0.3 10 ^3/uL (0.4-5.4); Lymphocytes % (auto) 3.9 % (10.0-50.0); Mean Corpuscular Hemoglobin 31.7 pg (28.0-32.0); Mean Corpuscular Hgb Conc. 34.6 g/dL (32.0-36.0); Mean Corpuscular Volume 91.7 fL (80.0-100.0); Monocytes # (auto) 0.7 10 ^3/uL (0-1.3); Monocytes % (auto) 8.7 % (0.0-12.0); Neutrophils # (auto) 7.4 10 ^3/uL (1.6-8.6); Neutrophils % (auto) 86.4 % (37.0-80.0); Red Blood Cells 3.28 10^6/uL (4.5-5.90); Red Cell Distribution Width 13.7 % (11.8-14.3); White Blood Cell 8.5 10^3/uL (4.4-10.8)
[2020-11-29 08:30] LABS: BUN/Creatinine Ratio 26.9; Calcium 8.6 mg/dL (8.5-10.1); Potassium 3.3 mmol/L (3.5-5.1)
[2020-11-29] MEDS: SODIUM CHLOR 0.9% PF (SALINE LOCK) 10ML VIAL/SYR IV SCH ×2 (09:49→21:25)
[2020-11-29] MEDS: PANTOPRAZOLE 40 MG/10 ML VIAL INJ IV SCH (09:49)
[2020-11-29] MEDS: SODIUM FERR GLUC 62.5MG/5ML 125 MG in SODIUM CHL 0.9% 100 ML IV SCH ×2 (12:18→12:29)
[2020-11-29] MEDS ORDERED: MORPHINE SULFATE INJECTION 2 MG/2 ML SYRG IV ONE (12:30)
[2020-11-29] MEDS: SOD CHL 0.9%/ KCL 20MEQ 1,000 ML IV SCH (18:15)
[2020-11-29] MEDS: fentaNYL Drip 2500mCg/250mlNS 250 ML IV SCH (19:45)
[2020-11-29] MEDS: PROPOFOL 100 ML IV SCH (19:45)
[2020-11-29] MEDS: hydrALAZINE HCL 20 MG/ML VL IV PRN (21:26)
[2020-11-30] VITALS (51 sets, daily range): BP systolic 102–159; BP diastolic 55–80
[2020-11-30] MEDS: ACETYLCYSTEINE 10 %(100MG/ML) SOL 4ML NEB SCH ×6 (03:03→21:39)
[2020-11-30] MEDS: ALBUTEROL SULF 2.5 MG/0.5ML(0.5%) NEB SOLN NEB SCH ×6 (03:03→21:39)
[2020-11-30] MEDS: IPRATROPIUM BROM 0.5 MG/2.5ML INH SOL NEB SCH ×6 (03:03→21:39)
[2020-11-30] MEDS: MORPHINE SULFATE 4 MG/ML SYR/VIAL IV PRN (03:30)
[2020-11-30] MEDS: SOD CHL 0.9%/ KCL 20MEQ 1,000 ML IV SCH (04:13)
[2020-11-30] MEDS: LORazepam 2MG/ML-1ML VIAL IV PRN (04:14)
[2020-11-30] MEDS: CLINDAMYCIN 300MG IV 50 ML IV SCH (05:37)
[2020-11-30 06:05] LABS: Basophils # (auto) 0.1 10 ^3/uL (0-0.2); Basophils % (auto) 0.6 % (0.0-2.0); Eosinophils # (auto) 0.1 10 ^3/uL (0-0.8); Eosinophils % (auto) 0.9 % (0.0-7.0); Hematocrit 34.2 % (41.0-53.0); Hemoglobin 11.7 g/dL (13.5-17.5); Lymphocytes # (auto) 0.6 10 ^3/uL (0.4-5.4); Lymphocytes % (auto) 5.9 % (10.0-50.0); Mean Corpuscular Hemoglobin 32.1 pg (28.0-32.0); Mean Corpuscular Hgb Conc. 34.2 g/dL (32.0-36.0); Mean Corpuscular Volume 93.9 fL (80.0-100.0); Monocytes # (auto) 1.4 10 ^3/uL (0-1.3); Monocytes % (auto) 14.6 % (0.0-12.0); Neutrophils # (auto) 7.7 10 ^3/uL (1.6-8.6); Nucleated Red Blood Cells % 0.3 %; Red Blood Cells 3.64 10^6/uL (4.5-5.90); Red Cell Distribution Width 14.2 % (11.8-14.3); White Blood Cell 9.9 10^3/uL (4.4-10.8)
[2020-11-30] MEDS: NOREPINEPHRINE 8 MG/250ML KIT 250 ML IV SCH (06:15)
[2020-11-30 06:28] LABS: Potassium 3.8 mmol/L (3.5-5.1)
[2020-11-30 06:36] LABS: BUN/Creatinine Ratio 32.8; Calcium 8.7 mg/dL (8.5-10.1)
[2020-11-30] MEDS: SODIUM CHLOR 0.9% PF (SALINE LOCK) 10ML VIAL/SYR IV SCH ×2 (10:00→22:00)
[2020-11-30] MEDS: SODIUM FERR GLUC 62.5MG/5ML 125 MG in SODIUM CHL 0.9% 100 ML IV SCH (11:26)
[2020-11-30] MEDS: PANTOPRAZOLE 40 MG/10 ML VIAL INJ IV SCH (17:11)
[2020-11-30] MEDS: MORPHINE SULFATE INJECTION 2 MG/2 ML SYRG IV PRN (17:21)
[2020-11-30] MEDS: PROPOFOL 100 ML IV SCH (19:45)
[2020-11-30] MEDS: fentaNYL Drip 2500mCg/250mlNS 250 ML IV SCH (19:45)
[2020-12-01] VITALS (24 sets, daily range): BP systolic 131–155; BP diastolic 62–79
[2020-12-01] MEDS: ALBUTEROL SULF 2.5 MG/0.5ML(0.5%) NEB SOLN NEB SCH ×6 (02:29→22:30)
[2020-12-01] MEDS: IPRATROPIUM BROM 0.5 MG/2.5ML INH SOL NEB SCH ×6 (02:30→22:30)
[2020-12-01] MEDS: ACETYLCYSTEINE 10 %(100MG/ML) SOL 4ML NEB SCH ×6 (02:30→22:30)
[2020-12-01 05:25] LABS: Basophils # (auto) 0 10 ^3/uL (0-0.2); Basophils % (auto) 0.6 % (0.0-2.0); Eosinophils # (auto) 0 10 ^3/uL (0-0.8); Eosinophils % (auto) 0.5 % (0.0-7.0); Hematocrit 31.8 % (41.0-53.0); Hemoglobin 10.9 g/dL (13.5-17.5); Lymphocytes # (auto) 0.4 10 ^3/uL (0.4-5.4); Lymphocytes % (auto) 4.1 % (10.0-50.0); Mean Corpuscular Hemoglobin 31.6 pg (28.0-32.0); Mean Corpuscular Hgb Conc. 34.3 g/dL (32.0-36.0); Monocytes # (auto) 0.6 10 ^3/uL (0-1.3); Monocytes % (auto) 7.3 % (0.0-12.0); Neutrophils # (auto) 7.5 10 ^3/uL (1.6-8.6); Neutrophils % (auto) 87.5 % (37.0-80.0); Red Blood Cells 3.46 10^6/uL (4.5-5.90); Red Cell Distribution Width 14.1 % (11.8-14.3); White Blood Cell 8.6 10^3/uL (4.4-10.8)
[2020-12-01 06:02] LABS: BUN/Creatinine Ratio 32.8; Calcium 8.4 mg/dL (8.5-10.1); Potassium 3.2 mmol/L (3.5-5.1)
[2020-12-01] MEDS: NOREPINEPHRINE 8 MG/250ML KIT 250 ML IV SCH (06:15)
[2020-12-01] MEDS: SODIUM CHLOR 0.9% PF (SALINE LOCK) 10ML VIAL/SYR IV SCH ×2 (10:14→22:00)
[2020-12-01] MEDS: PANTOPRAZOLE 40 MG/10 ML VIAL INJ IV SCH (10:14)
[2020-12-01] MEDS: SOD CHL 0.9%/ KCL 20MEQ 1,000 ML IV SCH (10:15)
[2020-12-01] MEDS ORDERED: POTASSIUM CHL 20MEQ/50ML 50 ML IV SCH (10:30)
[2020-12-01] MEDS: SODIUM FERR GLUC 62.5MG/5ML 125 MG in SODIUM CHL 0.9% 100 ML IV SCH (12:52)
[2020-12-01] MEDS: POTASSIUM CHL 20MEQ/50ML 50 ML IV SCH ×2 (14:10→18:20)
[2020-12-02] MEDS: IPRATROPIUM BROM 0.5 MG/2.5ML INH SOL NEB SCH (02:15)
[2020-12-02] MEDS: ALBUTEROL SULF 2.5 MG/0.5ML(0.5%) NEB SOLN NEB SCH (02:15)
[2020-12-02] MEDS: ACETYLCYSTEINE 10 %(100MG/ML) SOL 4ML NEB SCH (02:15)
[2020-12-02 04:55] VITALS: BP 155/92
[2020-12-02 05:53] LABS: Basophils # (auto) 0.1 10 ^3/uL (0-0.2); Basophils % (auto) 0.9 % (0.0-2.0); Eosinophils # (auto) 0 10 ^3/uL (0-0.8); Eosinophils % (auto) 0.5 % (0.0-7.0); Hemoglobin 9.7 g/dL (13.5-17.5); Lymphocytes # (auto) 0.4 10 ^3/uL (0.4-5.4); Lymphocytes % (auto) 6.9 % (10.0-50.0); Mean Corpuscular Hemoglobin 31.9 pg (28.0-32.0); Mean Corpuscular Hgb Conc. 34.7 g/dL (32.0-36.0); Mean Corpuscular Volume 91.8 fL (80.0-100.0); Monocytes # (auto) 0.5 10 ^3/uL (0-1.3); Monocytes % (auto) 8.5 % (0.0-12.0); Neutrophils % (auto) 83.2 % (37.0-80.0); Red Blood Cells 3.05 10^6/uL (4.5-5.90); Red Cell Distribution Width 14.1 % (11.8-14.3)
[2020-12-02 06:06] LABS: % Iron Saturation 52.1 % (20-55)
[2020-12-02 06:09] LABS: BUN/Creatinine Ratio 38.6; Calcium 8.3 mg/dL (8.5-10.1); Potassium 4.3 mmol/L (3.5-5.1)
== END 2020-12-02 05:50 | DRG 4 ==
LOC: ER 15:44 → EDBD 15:44 → TELE 11-14 05:23 → DOU IN ICU 11-15 16:30 → TELE-CENTR 12-01 14:55
PROVIDERS: ADMIT Nurse Practitioner; ATTEND Internal Medicine Pulmonary Disease
PROC: 5A1955Z Respiratory Ventilation, Greater than 96 Consecutive Hours (ICD-10-PCS; 2020-11-14)
PROC: 0BH17EZ Insertion of Endotracheal Airway into Trachea, Via Natural or Artificial Opening (ICD-10-PCS; 2020-11-14)
PROC: 02HV33Z Insertion of Infusion Device into Superior Vena Cava, Percutaneous Approach (ICD-10-PCS; 2020-11-14)
PROC: B548ZZA Ultrasonography of Superior Vena Cava, Guidance (ICD-10-PCS; 2020-11-14)
PROC: 0BP1XDZ Removal of Intraluminal Device from Trachea, External Approach (ICD-10-PCS; 2020-11-21)
PROC: 5A09457 Assistance with Respiratory Ventilation, 24-96 Consecutive Hours, Continuous Positive Airway Pressure (ICD-10-PCS; 2020-11-21)
PROC: 5A1955Z Respiratory Ventilation, Greater than 96 Consecutive Hours (ICD-10-PCS; 2020-11-23)
PROC: 0BH17EZ Insertion of Endotracheal Airway into Trachea, Via Natural or Artificial Opening (ICD-10-PCS; 2020-11-23)
PROC: 0B968ZX Drainage of Right Lower Lobe Bronchus, Via Natural or Artificial Opening Endoscopic, Diagnostic (ICD-10-PCS; 2020-11-24)
PROC: 30233N1 Transfusion of Nonautologous Red Blood Cells into Peripheral Vein, Percutaneous Approach (ICD-10-PCS; 2020-11-26)
PROC: 0DH63UZ Insertion of Feeding Device into Stomach, Percutaneous Approach (ICD-10-PCS; 2020-11-27)
PROC: 0B110F4 Bypass Trachea to Cutaneous with Tracheostomy Device, Open Approach (ICD-10-PCS; principal; 2020-11-27 08:27)
DX: J96.01 Acute respiratory failure with hypoxia (principal); A41.9 Sepsis, unspecified organism; J18.9 Pneumonia, unspecified organism; R65.21 Severe sepsis with septic shock; J69.0 Pneumonitis due to inhalation of food and vomit; I82.403 Acute embolism and thrombosis of unspecified deep veins of lower extremity, bilateral; Z99.11 Dependence on respirator [ventilator] status; Z68.1 Body mass index [BMI] 19.9 or less, adult; E44.1 Mild protein-calorie malnutrition; M80.851A Other osteoporosis with current pathological fracture, right femur, initial encounter for fracture; Z20.822 Contact with and (suspected) exposure to COVID-19; G89.29 Other chronic pain; F02.80 Dementia in other diseases classified elsewhere, unspecified severity, without behavioral disturbance, psychotic disturbance, mood disturbance, and anxiety; G30.9 Alzheimer's disease, unspecified; J43.2 Centrilobular emphysema; I70.0 Atherosclerosis of aorta; E87.6 Hypokalemia; L92.9 Granulomatous disorder of the skin and subcutaneous tissue, unspecified; K29.70 Gastritis, unspecified, without bleeding; I16.0 Hypertensive urgency; I10 Essential (primary) hypertension; Z82.49 Family history of ischemic heart disease and other diseases of the circulatory system; Z87.891 Personal history of nicotine dependence; Z88.5 Allergy status to narcotic agent; Z79.899 Other long term (current) drug therapy
CPT/HCPCS: 31720; 36415; 36569; 36600; 70450; 71045; 71250; 71275; 73030; 73070; 73100; 80048; 80053; 81001; 82040; 82306; 82607; 82746; 82805; 82962; 83540; 83550; 83605; 83735; 83880; 84100; 84132; 84439; 84443; 84478; 84484; 85025; 85379; 85610; 85730; 86850; 86900; 86901; 86920; 87040; 87070; 87081; 87205; 87426; 93005; 93970; 94002; 94003; 94640; 94660; 96361; 96365; 96366; 96368; A4565; A4618; C9113; G0378; J0330; J0696; J1100; J1815; J1885; J2250; J2543; J2704; J3480; J3490; J7060; J7131; P9047